=== PATIENT | female | born 1955 | race African-American/Black ===

== ENCOUNTER 2020-05-17 19:41 | Inpatient (IN) | payer OTHER, MEDICAID ==
[~2020-05-17] VITALS: Ht 165.1 cm; Wt 146.0 kg
[2020-05-18 00:17] LABS: Basophils # (auto) 0.1 10 ^3/uL (0-0.2); Eosinophils # (auto) 0.2 10 ^3/uL (0-0.8); Eosinophils % (auto) 2.5 % (0.0-7.0); Hematocrit 32.7 % (36.0-46.0); Hemoglobin 10.5 g/dL (12.2-16.2); Lymphocytes # (auto) 1.7 10 ^3/uL (0.4-5.4); Lymphocytes % (auto) 23.5 % (10.0-50.0); Mean Corpuscular Hemoglobin 29.2 pg (28.0-32.0); Mean Corpuscular Hgb Conc. 32.2 g/dL (32.0-36.0); Mean Corpuscular Volume 90.7 fL (80.0-100.0); Monocytes # (auto) 0.4 10 ^3/uL (0-1.3); Monocytes % (auto) 5.8 % (0.0-12.0); Neutrophils # (auto) 4.8 10 ^3/uL (1.6-8.6); Neutrophils % (auto) 67.2 % (37.0-80.0); Nucleated Red Blood Cells % 0.1 %; Platelet Count (auto) 221 10^3/uL (140-450); Red Cell Distribution Width 15.4 % (11.8-14.3); White Blood Cell 7.2 10^3/uL (4.4-10.8)
[2020-05-18 00:31] LABS: Chloride 103 mmol/L (98-107); Potassium 4.3 mmol/L (3.5-5.1); Sodium 138 mmol/L (136-145)
[2020-05-18 00:35] LABS: Alanine Aminotransferase 26 U/L (13-56); Albumin 3.3 g/dL (3.4-5.0); Anion Gap 4 (5-15); Aspartate Aminotransferase 21 U/L (15-37); BUN/Creatinine Ratio 25.4; Blood Urea Nitrogen 15 mg/dL (7-18); Calcium 8.5 mg/dL (8.5-10.1); Carbon Dioxide 31 mmol/L (21-32); GFR African American 132 mL/min; GFR Non-African American 109 mL/min; Glucose 85 mg/dL (74-106)
[2020-05-18 00:40] LABS: Alkaline Phosphatase 128 U/L (45-117); Bilirubin, Total 0.3 mg/dL (0.2-1.0)
[2020-05-18] MEDS ORDERED: ONDANSETRON HCL 4 MG/2 ML VIAL IV ONE (02:00)
[2020-05-18] MEDS ORDERED: MORPHINE SULFATE 4 MG/ML SYR/VIAL IV ONE (02:00)
[2020-05-18] MEDS: MORPHINE SULF 15mg ER tab PO SCH ×4 (03:00→22:17)
[2020-05-18] MEDS ORDERED: DEXTROSE (50%) 50ML SYRG IV PRN (03:00)
[2020-05-18] MEDS ORDERED: DOCUSATE SOD 100 MG CAP PO PRN (03:00)
[2020-05-18] MEDS ORDERED: ACETAMINOPHEN 325 MG TAB PO PRN (03:00)
[2020-05-18] MEDS ORDERED: ONDANSETRON HCL 4 MG/2 ML VIAL IV PRN (03:00)
[2020-05-18 04:30] VITALS: BP 161/89
--- NOTE | 2020-05-18 04:30 | NUR ---
PATIENT BROUGHT TO UNIT FROM ER PATIENT IS AOX4, ALL BELONGINGS W/ PATIENT. DISCUSSED POC W/ PATIENT AND PATIENT VERBALLY AGREED TO UNDERSTANDING. PATIENT CALL LIGHT WITHIN REACH, SOME SOB WHEN TURNING. PATIENT SATING AT 99% ON 2L NC. NO COMPLAINTS OF ACUTE PAIN. BED LOCKED IN LOWEST POSITION. SEIZURE PRECAUTIONS. WILL CONTINUE TO MONITOR.
--- NOTE | 2020-05-18 05:00 | NUR ---
RT PAGED TO REEVALUATE PATIENT FOR EXERTION ON MOVING TO HER SIDE. RT EVALUATED HER. NO FURTHER INTERVENTIONS. WILL CONTINUE TO MONITOR.
[2020-05-18] MEDS: ACCU-CHEK COMFORT CURVE STRIP VI SCH ×3 (05:13→11:19)
[2020-05-18] MEDS: InsuLIN REG 1unit/0.01ml Soln (100units/ml) SC SCH ×3 (05:15→11:19)
[2020-05-18] MEDS: ALBUTEROL SULF 2.5 MG/0.5ML(0.5%) NEB SOLN NEB PRN ×2 (06:17→21:14)
[2020-05-18] MEDS: IPRATROPIUM BROM 0.5 MG/2.5ML INH SOL NEB PRN ×2 (06:17→21:14)
[2020-05-18 06:32] VITALS: BP 161/89
[2020-05-18 07:39] LABS: Basophils # (auto) 0.1 10 ^3/uL (0-0.2); Basophils % (auto) 0.9 % (0.0-2.0); Eosinophils # (auto) 0.1 10 ^3/uL (0-0.8); Eosinophils % (auto) 2.5 % (0.0-7.0); Hematocrit 31.2 % (36.0-46.0); Hemoglobin 10.3 g/dL (12.2-16.2); Lymphocytes # (auto) 1.5 10 ^3/uL (0.4-5.4); Lymphocytes % (auto) 26.6 % (10.0-50.0); Mean Corpuscular Hemoglobin 29.9 pg (28.0-32.0); Mean Corpuscular Hgb Conc. 32.9 g/dL (32.0-36.0); Mean Corpuscular Volume 90.8 fL (80.0-100.0); Monocytes # (auto) 0.4 10 ^3/uL (0-1.3); Monocytes % (auto) 7.8 % (0.0-12.0); Neutrophils # (auto) 3.5 10 ^3/uL (1.6-8.6); Neutrophils % (auto) 62.2 % (37.0-80.0); Nucleated Red Blood Cells % 0.1 %; Platelet Count (auto) 216 10^3/uL (140-450); Red Blood Cells 3.44 10^6/uL (4.0-5.20); Red Cell Distribution Width 15.5 % (11.8-14.3); White Blood Cell 5.6 10^3/uL (4.4-10.8)
--- NOTE | 2020-05-18 07:45 | NUR ---
Opening Shift Note Assumed care of patient, awake and alert. No S/S of distress/SOB or pain. Instructed on POC and to call for assist PRN, will continue to monitor for changes Q1hr and PRN.
[2020-05-18 08:01] LABS: Chloride 105 mmol/L (98-107); Potassium 4.1 mmol/L (3.5-5.1); Sodium 140 mmol/L (136-145)
[2020-05-18 08:15] LABS: Anion Gap 3 (5-15); Blood Urea Nitrogen 14 mg/dL (7-18); Calcium 8.6 mg/dL (8.5-10.1); Carbon Dioxide 32 mmol/L (21-32); Cholesterol 162 mg/dL (< 200); GFR African American 140 mL/min; GFR Non-African American 115 mL/min; Glucose 77 mg/dL (74-106); HDL Cholesterol 53 mg/dL (40-59); LDL Cholesterol 107 mg/dL (< 100); Triglycerides 79 mg/dL (< 150)
[2020-05-18 08:46] VITALS: BP 109/53
[2020-05-18] MEDS ORDERED: FUROSEMIDE 40 MG/4 ML VIAL IV SCH (10:00)
--- NOTE | 2020-05-18 11:13 | NUR ---
Mendoza catheter insertion Patient assessed and determined to be in need of mendoza catheter. Order obtained from DELIO BENNETT. Patient educated on catheter and reason for insertion. All questions answered. Mendoza catheter guage Macedonian inserted with clean sterile technique. Patient tolerated well.
[2020-05-18 13:00] VITALS: BP 148/68
[2020-05-18] MEDS ORDERED: predniSONE 20 MG TAB PO ONE (13:30)
[2020-05-18] MEDS ORDERED: ENOXAPARIN SOD 40 MG/0.4 ML SYRINGE SC ONE (13:30)
[2020-05-18] MEDS ORDERED: POTASSIUM EFFERVESENT TAB 25 MEQ PO ONE (13:45)
--- NOTE | 2020-05-18 16:13 | NUR ---
PT BLOOD GLUCOSE 138
[2020-05-18 17:00] VITALS: BP 169/76
--- NOTE | 2020-05-18 19:20 | NUR ---
Opening Shift Note Assumed care of patient, awake and alert x4. No S/S of distress/SOB or acute pain. Call light within reach, HOB at 30 45 degrees, rails up and padded x2. Bed locked in lowest position. Instructed on POC and to call for assist PRN, will continue to monitor for changes Q1hr and PRN.
[2020-05-18] MEDS ORDERED: LORA-622 PO (20:53)
[2020-05-18] MEDS ORDERED: CARV25TA55 PO (21:07)
[2020-05-18] MEDS ORDERED: HYDR50TA15 PO (21:09)
[2020-05-18] MEDS ORDERED: PHE100C PO (21:11)
[2020-05-18] MEDS ORDERED: MONT10TA34 OR (21:13)
[2020-05-18] MEDS ORDERED: BUP75T GT (21:13)
[2020-05-18] MEDS ORDERED: GABA300C10 PO (21:20)
[2020-05-18] MEDS ORDERED: NIFE1TAB30 PO (21:22)
[2020-05-18] MEDS ORDERED: PREG100C PO (21:23)
[2020-05-18 22:00] VITALS: BP 153/80
--- NOTE | 2020-05-18 22:00 | NUR ---
SPOKE WITH HOSPITALIST PERTAINING TO HOME MEDICATIONS. ORDERS RECEIVED FOR BLOOD PRESSURE MEDICATIONS AND ANTI-SEIZURE MEDICATIONS.
[2020-05-18] MEDS: ENOXAPARIN SOD 40 MG/0.4 ML SYRINGE SC SCH (22:17)
[2020-05-18] MEDS: FUROSEMIDE 40 MG/4 ML VIAL IV SCH (22:17)
[2020-05-19 01:05] VITALS: BP 153/80
[2020-05-19 05:00] VITALS: BP 155/76
[2020-05-19] MEDS: MORPHINE SULF 15mg ER tab PO SCH ×3 (05:35→22:03)
[2020-05-19] MEDS: hydrALAZINE HCL 25 MG TAB PO SCH ×3 (05:36→22:02)
[2020-05-19] MEDS: IPRATROPIUM BROM 0.5 MG/2.5ML INH SOL NEB PRN ×2 (07:00→22:38)
[2020-05-19] MEDS: ALBUTEROL SULF 2.5 MG/0.5ML(0.5%) NEB SOLN NEB PRN ×2 (07:00→22:38)
[2020-05-19] MEDS ORDERED: INSLANTI SC ×2 (08:06)
[2020-05-19] MEDS ORDERED: ZOLP10TA PO (08:06)
[2020-05-19] MEDS ORDERED: INSLISPI SC (08:06)
[2020-05-19 08:36] VITALS: BP 143/74
[2020-05-19] MEDS: PHENYTOIN SODIUM 100 MG CAP PO SCH ×2 (09:01→22:01)
[2020-05-19] MEDS: FUROSEMIDE 40 MG/4 ML VIAL IV SCH ×2 (09:02→22:00)
[2020-05-19] MEDS: CARVEDILOL 12.5 MG TAB PO SCH ×2 (09:02→22:01)
[2020-05-19] MEDS: predniSONE 20 MG TAB PO SCH (09:02)
[2020-05-19] MEDS: ENOXAPARIN SOD 40 MG/0.4 ML SYRINGE SC SCH ×2 (09:02→22:05)
[2020-05-19] MEDS: POTASSIUM EFFERVESENT TAB 25 MEQ PO SCH (09:02)
--- NOTE | 2020-05-19 09:17 | NUR ---
Dr. Scherer paged regarding patient wants her home meds. Awaiting to call back.
[2020-05-19] MEDS ORDERED: GABAPENTIN 300 MG CAP PO SCH (10:00)
[2020-05-19] MEDS ORDERED: MORP15TA PO (12:59)
[2020-05-19] MEDS ORDERED: BUPR100T14 PO (12:59)
[2020-05-19] MEDS ORDERED: PERCOT PO (12:59)
[2020-05-19] MEDS ORDERED: PHE100C PO (12:59)
[2020-05-19] MEDS ORDERED: SPIR50TA5 PO (12:59)
[2020-05-19] MEDS ORDERED: CLON0.3D4 PO (12:59)
[2020-05-19] MEDS ORDERED: ESCI20TA PO (12:59)
[2020-05-19 13:00] VITALS: BP 118/53
[2020-05-19] MEDS ORDERED: LIDO5DIS21 TOP (13:03)
[2020-05-19] MEDS ORDERED: TIZA4CAP PO (14:32)
--- NOTE | 2020-05-19 14:56 | NUR ---
Family brought patient home meds, took to the pharmacy, there is Percocet 5/325 mg 57 tabs and Morphine Sulfate 15 mg 10 tabs counted with the patient. Patient signed and sealed all meds to Pharmacy.
[2020-05-19 17:00] VITALS: BP 122/53
[2020-05-19] MEDS ORDERED: ZOLPIDEM TARTRATE 5 MG TAB PO PRN (17:15)
--- NOTE | 2020-05-19 17:57 | NUR ---
Spoke to Dr. Rodriguez regarding patient needs home meds, received new orders, noted and carried it out.
[2020-05-19] MEDS ORDERED: LORazepam 0.5 MG TAB PO PRN (18:00)
[2020-05-19] MEDS ORDERED: DEXTROSE (50%) 50ML SYRG IV PRN (18:00)
--- NOTE | 2020-05-19 19:30 | NUR ---
Opening Shift Note Assumed care of patient, awake and alert. A&Ox4. Patient in bed. No S/S of distress/SOB or pain. Safety measures maintained by keeping the bed locked in lowest position, side rails up x2, personal items and call light within reach. Instructed on POC and to call for assist PRN, will continue to monitor for changes Q1hr and PRN.
[2020-05-19 22:00] VITALS: BP 166/84
[2020-05-19] MEDS ORDERED: PREGABALIN 25 MG CAP PO SCH (22:00)
[2020-05-19] MEDS ORDERED: InsuLIN REG 1unit/0.01ml Soln (100units/ml) SC SCH (22:00)
[2020-05-19] MEDS ORDERED: INSULIN LANTUS (GLARGINE) 1 /0.01ml (100units/ml) SC SCH (22:00)
[2020-05-19] MEDS: PREGABALIN 25 MG CAP PO SCH (22:02)
[2020-05-19] MEDS: PREGABALIN CAPSULE 75 MG CAP PO SCH (22:02)
[2020-05-19] MEDS: buPROPion HCL 75 MG TAB PO SCH (22:03)
[2020-05-19] MEDS: ACCU-CHEK COMFORT CURVE STRIP VI SCH (22:15)
[2020-05-20 05:00] VITALS: BP 128/71
[2020-05-20 05:10] LABS: Hematocrit 35.9 % (36.0-46.0); Mean Corpuscular Hgb Conc. 32.2 g/dL (32.0-36.0)
[2020-05-20 05:14] LABS: Hemoglobin 11.5 g/dL (12.2-16.2); Mean Corpuscular Hemoglobin 28.9 pg (28.0-32.0); Mean Corpuscular Volume 89.7 fL (80.0-100.0); Platelet Count (auto) 256 10^3/uL (140-450); Red Cell Distribution Width 14.6 % (11.8-14.3); White Blood Cell 8.4 10^3/uL (4.4-10.8)
[2020-05-20 05:18] LABS: Basophils % (manual) 0 (0.0-2.0); Blast Cells 0; Metamyelocytes % 0; Myelocytes % 0; Promyelocytes % 0; Reactive Lymphocytes 0
[2020-05-20 05:25] LABS: Calcium 8.8 mg/dL (8.5-10.1); Potassium 4.1 mmol/L (3.5-5.1)
[2020-05-20 05:27] LABS: BUN/Creatinine Ratio 26.9
[2020-05-20] MEDS: MORPHINE SULF 15mg ER tab PO SCH ×2 (05:36→14:00)
[2020-05-20 05:52] LABS: Band Neutrophils % (manual) 3; Eosinophils % (manual) 5 (0-7); Lymphocytes % (manual) 32 (10.0-50.0); Monocytes % (manual) 7 (0-12)
[2020-05-20] MEDS: PREGABALIN CAPSULE 75 MG CAP PO SCH ×2 (06:14→14:04)
[2020-05-20] MEDS: PREGABALIN 25 MG CAP PO SCH ×2 (06:14→14:04)
[2020-05-20] MEDS: hydrALAZINE HCL 25 MG TAB PO SCH ×2 (06:15→14:05)
[2020-05-20] MEDS: InsuLIN REG 1unit/0.01ml Soln (100units/ml) SC SCH ×3 (06:16→17:00)
[2020-05-20] MEDS: ACCU-CHEK COMFORT CURVE STRIP VI SCH ×3 (06:16→17:41)
--- NOTE | 2020-05-20 07:25 | NUR ---
Opening Shift Note Assumed care of patient, awake and alert. A&Ox4. No S/S of distress/SOB or pain. Updated on POC and instructed to call for assistance as needed, patient verbalized understanding. Bed locked in lowest position, side rails up x2, personal items and call light within reach. Fall precautions in place, bed alarm on. Will continue to monitor for changes Q1hr and PRN.
--- NOTE | 2020-05-20 07:46 | NUR ---
UA sent to lab.
[2020-05-20 07:53] LABS: Urine Bacteria FEW /hpf (None Seen); Urine Blood 1+ /uL (Negative); Urine WBC 6 /hpf (0 - 5)
[2020-05-20 09:00] VITALS: BP 140/70
[2020-05-20] MEDS: IPRATROPIUM BROM 0.5 MG/2.5ML INH SOL NEB PRN (09:08)
[2020-05-20] MEDS: ALBUTEROL SULF 2.5 MG/0.5ML(0.5%) NEB SOLN NEB PRN (09:08)
[2020-05-20] MEDS: POTASSIUM EFFERVESENT TAB 25 MEQ PO SCH (09:17)
[2020-05-20] MEDS: predniSONE 20 MG TAB PO SCH (09:17)
[2020-05-20] MEDS: ENOXAPARIN SOD 40 MG/0.4 ML SYRINGE SC SCH (09:17)
[2020-05-20] MEDS: buPROPion HCL 75 MG TAB PO SCH (09:17)
[2020-05-20] MEDS: FUROSEMIDE 40 MG/4 ML VIAL IV SCH (09:17)
[2020-05-20] MEDS: HYDROcodone-ACET 5/325MG TAB PO PRN ×2 (09:18→14:12)
[2020-05-20] MEDS: PHENYTOIN SODIUM 100 MG CAP PO SCH (09:18)
[2020-05-20] MEDS: CARVEDILOL 12.5 MG TAB PO SCH (09:18)
[2020-05-20] MEDS ORDERED: TIZANIDINE 4 MG PO SCH (10:30)
[2020-05-20] MEDS ORDERED: FURO40TA4 PO ×2 (12:10→12:11)
[2020-05-20 12:50] VITALS: BP 116/57
[2020-05-20 15:50] VITALS: BP 116/57
[2020-05-20 17:00] VITALS: BP 109/68
--- NOTE | 2020-05-20 18:23 | NUR ---
DISCHARGE HOME Discharge instructions given as ordered. Encourage to follow up with PMD as instructed. All questions and concerns addressed. Patient verbalized understanding. Medication reconciliation form completed and copy given to patient. Home medications held in Pharmacy returned to patient. IV removed with catheter intact, pressure dressing applied, mendoza catheter removed. Telemetry unit returned to ICU. Patient taken to vehicle via wheelchair with all personal belongings, accompanied by staff. No distress noted at time of departure.
== END 2020-05-20 18:23 | disposition home or self-care (01) | DRG 292 ==
LOC: EDBD 19:41 → ER 19:41 → EDUNIT# 19:41 → TELE 19:42 → TELE-WESTW 05-18 04:31
PROVIDERS: ADMIT Hospitalist; ATTEND Internal Medicine
DX: I11.0 Hypertensive heart disease with heart failure (principal); J96.11 Chronic respiratory failure with hypoxia; Z68.43 Body mass index [BMI] 50.0-59.9, adult; I50.33 Acute on chronic diastolic (congestive) heart failure; E66.01 Morbid (severe) obesity due to excess calories; Z85.3 Personal history of malignant neoplasm of breast; Z87.891 Personal history of nicotine dependence; I27.20 Pulmonary hypertension, unspecified; E11.40 Type 2 diabetes mellitus with diabetic neuropathy, unspecified; G89.29 Other chronic pain; J43.9 Emphysema, unspecified; Z88.0 Allergy status to penicillin; Z88.1 Allergy status to other antibiotic agents; Z91.19 Patient's noncompliance with other medical treatment and regimen
CPT/HCPCS: 36415; 71045; 80048; 80053; 80061; 81001; 82962; 83036; 83880; 84484; 85007; 85025; 85027; 85379; 93005; 93306; 94640; G0378; J1815; J2405

== ENCOUNTER 2020-06-01 22:35 | Inpatient (IN) | payer OTHER, BC, MEDICAID ==
[~2020-06-01] VITALS: Ht 165.1 cm; Wt 145.0 kg
[~2020-06-01 22:35] MED LIST: BUPR100T14 PO; CARV25TA55 PO; CLON0.3D4 PO; ESCI20TA PO; FURO40TA4 PO; GABA300C10 PO; HYDR50TA15 PO; INSLANTI SC; INSLISPI SC; LIDO5DIS21 TOP; LORA-622 PO; MONT10TA34 OR; MORP15TA PO; NIFE1TAB30 PO; PERCOT PO; PHE100C PO; PREG100C PO; SPIR50TA5 PO; TIZA4CAP PO; ZOLP10TA PO
[2020-06-02] MEDS ORDERED: IPRATROPIUM BROM 0.5 MG/2.5ML INH SOL HHN ONE (01:00)
[2020-06-02] MEDS ORDERED: ALBUTEROL SULF 2.5 MG/0.5ML(0.5%) NEB SOLN HHN ONE (01:00)
[2020-06-02] MEDS ORDERED: methylPREDNISolone SOD SUCC 125 MG/2 ML VL IV ONE (01:00)
[2020-06-02 02:08] LABS: Basophils # (auto) 0.1 10 ^3/uL (0-0.2); Basophils % (auto) 1.5 % (0.0-2.0); Eosinophils # (auto) 0.2 10 ^3/uL (0-0.8); Eosinophils % (auto) 3.3 % (0.0-7.0); Hematocrit 32.7 % (36.0-46.0); Hemoglobin 10.4 g/dL (12.2-16.2); Lymphocytes # (auto) 1.8 10 ^3/uL (0.4-5.4); Lymphocytes % (auto) 31.7 % (10.0-50.0); Mean Corpuscular Hemoglobin 29.1 pg (28.0-32.0); Mean Corpuscular Hgb Conc. 31.8 g/dL (32.0-36.0); Mean Corpuscular Volume 91.4 fL (80.0-100.0); Monocytes # (auto) 0.4 10 ^3/uL (0-1.3); Monocytes % (auto) 7.5 % (0.0-12.0); Neutrophils # (auto) 3.2 10 ^3/uL (1.6-8.6); Nucleated Red Blood Cells % 0.1 %; Platelet Count (auto) 209 10^3/uL (140-450); Red Blood Cells 3.58 10^6/uL (4.0-5.20); Red Cell Distribution Width 15.2 % (11.8-14.3); White Blood Cell 5.7 10^3/uL (4.4-10.8)
[2020-06-02 02:26] LABS: Albumin 3.1 g/dL (3.4-5.0); Anion Gap 2 (5-15); BUN/Creatinine Ratio 21.4; Blood Urea Nitrogen 12 mg/dL (7-18); Calcium 8.5 mg/dL (8.5-10.1); Carbon Dioxide 34 mmol/L (21-32); Chloride 104 mmol/L (98-107); GFR African American 140 mL/min; GFR Non-African American 115 mL/min; Glucose 75 mg/dL (74-106); Magnesium 2.2 mg/dL (1.6-2.6); Potassium 3.9 mmol/L (3.5-5.1); Sodium 140 mmol/L (136-145)
[2020-06-02 02:31] LABS: Alanine Aminotransferase 25 U/L (13-56); Alkaline Phosphatase 134 U/L (45-117); Aspartate Aminotransferase 18 U/L (15-37); Bilirubin, Total 0.3 mg/dL (0.2-1.0); Total Protein 7.6 g/dL (6.4-8.2)
[2020-06-02] MEDS ORDERED: ONDANSETRON HCL 4 MG/2 ML VIAL IV ONE (05:30)
[2020-06-02] MEDS ORDERED: KETOROLAC TROMETH 30 MG/ML 1ML VIAL IV ONE (05:30)
[2020-06-02] MEDS ORDERED: MORPHINE SULFATE 4 MG/ML SYR/VIAL IV ONE (05:30)
[2020-06-02] MEDS ORDERED: ACETAMINOPHEN 325 MG TAB PO PRN (06:15)
[2020-06-02] MEDS ORDERED: ALBUTEROL SULF 2.5 MG/0.5ML(0.5%) NEB SOLN NEB PRN (06:15)
[2020-06-02] MEDS ORDERED: MORPHINE SULF INJ 2 MG/ML SYRINGE 1ML IV PRN (06:15)
[2020-06-02] MEDS ORDERED: ONDANSETRON HCL 4 MG/2 ML VIAL IV PRN (06:15)
[2020-06-02] MEDS ORDERED: IPRATROPIUM BROM 0.5 MG/2.5ML INH SOL NEB PRN (06:15)
[2020-06-02] MEDS ORDERED: DEXTROSE (50%) 50ML SYRG IV PRN (06:15)
[2020-06-02] MEDS ORDERED: cloNIDine 0.3 mg/24hr 7DAY PATCH TD SCH (06:15)
[2020-06-02] MEDS ORDERED: DOCUSATE SOD 100 MG CAP PO PRN (06:15)
[2020-06-02] MEDS: hydrALAZINE HCL 25 MG TAB PO SCH ×3 (06:51→21:37)
[2020-06-02] MEDS: MORPHINE SULF 15mg ER tab PO SCH ×3 (06:52→21:27)
[2020-06-02] MEDS: buPROPion HCL 100 MG TAB PO SCH (06:52)
[2020-06-02 09:14] VITALS: BP 131/61
[2020-06-02] MEDS: ACCU-CHEK COMFORT CURVE STRIP VI SCH ×4 (09:25→20:20)
[2020-06-02] MEDS: InsuLIN REG 1unit/0.01ml Soln (100units/ml) SC SCH ×4 (09:25→20:20)
[2020-06-02] MEDS ORDERED: methylPREDNISolone SOD SUCC 125 MG/2 ML VL IV SCH (10:00)
[2020-06-02] MEDS ORDERED: CARVEDILOL 12.5 MG TAB PO SCH (10:00)
[2020-06-02] MEDS ORDERED: GABAPENTIN 300 MG CAP PO SCH (10:00)
[2020-06-02 10:05] LABS: Basophils # (auto) 0 10 ^3/uL (0-0.2); Basophils % (auto) 0.7 % (0.0-2.0); Eosinophils # (auto) 0 10 ^3/uL (0-0.8); Eosinophils % (auto) 0.1 % (0.0-7.0); Hematocrit 33.4 % (36.0-46.0); Hemoglobin 10.7 g/dL (12.2-16.2); Lymphocytes # (auto) 0.8 10 ^3/uL (0.4-5.4); Lymphocytes % (auto) 12.6 % (10.0-50.0); Mean Corpuscular Hemoglobin 29.3 pg (28.0-32.0); Mean Corpuscular Volume 91.6 fL (80.0-100.0); Monocytes # (auto) 0.1 10 ^3/uL (0-1.3); Neutrophils # (auto) 5.1 10 ^3/uL (1.6-8.6); Neutrophils % (auto) 84.6 % (37.0-80.0); Platelet Count (auto) 210 10^3/uL (140-450); Red Blood Cells 3.65 10^6/uL (4.0-5.20); Red Cell Distribution Width 15.1 % (11.8-14.3)
[2020-06-02 10:21] LABS: Calcium 8.6 mg/dL (8.5-10.1); Potassium 4.4 mmol/L (3.5-5.1)
[2020-06-02 10:24] LABS: BUN/Creatinine Ratio 15.4
[2020-06-02] MEDS: SPIRONOLACTONE 25 MG TAB PO SCH (11:04)
[2020-06-02] MEDS: LORATADINE 10 MG TAB PO SCH (11:05)
[2020-06-02] MEDS: PHENYTOIN SODIUM 100 MG CAP PO SCH ×2 (11:06→21:37)
[2020-06-02] MEDS: MONTELUKAST SODIUM 10 MG TAB PO SCH (11:07)
[2020-06-02] MEDS: CLOPIDOGREL BISULFATE 75 MG TAB PO SCH (11:07)
[2020-06-02] MEDS: NIFEdipine ER 30 MG TAB PO SCH (11:11)
[2020-06-02] MEDS: CARVEDILOL 12.5 MG TAB PO SCH ×2 (11:12→21:37)
[2020-06-02] MEDS: cefTRIAXone 1GM/50ML D5W 50 ML IV SCH (11:12)
[2020-06-02] MEDS: FUROSEMIDE 40 MG/4 ML VIAL IV SCH ×2 (11:12→21:36)
[2020-06-02] MEDS: LIDOCAINE 5% TOPICAL PATCH TOP SCH (11:18)
--- NOTE | 2020-06-02 11:55 | NUR ---
MS admit from ER SAI COLBERT,SANGEETA admitted to tele/MS after SBAR received. Patient oriented to LEO SELFRN primary RN, unit,295 room,B bed, and unit policies regarding patient care and visiting hours. Patient placed on 3LNC and weighed by bedscale and encouraged to call if they need something. All questions and concerns addressed, patient verbalized understanding. Note:
[2020-06-02 13:00] VITALS: BP 133/77
[2020-06-02] MEDS: PREGABALIN 25 MG CAP PO SCH ×2 (14:42→21:36)
--- NOTE | 2020-06-02 15:30 | NUR ---
Mendoza catheter insertion Patient assessed and determined to be in need of mendoza catheter. Order obtained from MD. Patient educated on catheter and reason for insertion. All questions answered. Mendoza catheter 16 guage Chinese inserted with clean sterile technique. Patient tolerated well.
--- NOTE | 2020-06-02 16:17 | NUR ---
Patient request her medication Tizanidine Hydrochloride early.
--- NOTE | 2020-06-02 16:30 | NUR ---
PT DECLINED P.T. TODAY.
[2020-06-02 16:45] VITALS: BP 135/79
[2020-06-02] MEDS: ATORVASTATIN 20 MG TAB PO SCH (18:20)
[2020-06-02] MEDS: ALBUTEROL SULF 2.5 MG/0.5ML(0.5%) NEB SOLN NEB SCH (18:59)
[2020-06-02] MEDS: IPRATROPIUM BROM 0.5 MG/2.5ML INH SOL NEB SCH (18:59)
--- NOTE | 2020-06-02 19:08 | NUR ---
Respiratory note: AT BEDSIDE FOR MED NEB TX. PT TOLERATING WELL VIA MASK. BS ARE DIMINISHED T/O WITH FINE WHEEZES HEARD IN RIGHT UPPER LOBE. POX 97-98% ON 5LPM NC. PT STATE SHE WEARS 3LPM NC AT HOME WILL ATTEMPT TO TITRATE O2 POST TX.
--- NOTE | 2020-06-02 19:12 | NUR ---
FIO2 TITRATED TO 4LPM VIA NC. POX 97-98%. PT TOLERATING WELL. RT NAME AND PAGER ASSIGNMENT WRITTEN ON PTS ROOM BOARD. PT AWARE IF SHE HAS ANY CONCERN WITH HER BREATHING I CAN BE PAGED AT ANY TIME. WILL CONTINUE TO MONITOR NEEDED. WILL NOTIFY NOC RN OF O2 CHANGE.
[2020-06-02 21:35] VITALS: BP 147/70
[2020-06-02] MEDS ORDERED: ZOLPIDEM TARTRATE 5 MG TAB PO PRN (22:00)
[2020-06-02 23:04] VITALS: BP 121/65
[2020-06-02 23:42] LABS: Urine Bacteria NONE SEEN /hpf (None Seen); Urine Blood Negative /uL (Negative); Urine WBC 1 /hpf (0 - 5)
[2020-06-03] MEDS: ACCU-CHEK COMFORT CURVE STRIP VI SCH ×6 (00:14→22:00)
[2020-06-03] MEDS: NITROGLYCERIN 0.4 MG SL TAB SL PRN (02:29)
--- NOTE | 2020-06-03 03:14 | NUR ---
Called/paged 0230 Pt complaining of chest pain. BP 132/64 HR68 98%4L NC 22RR. 0231 Stanley FR[place] called re: pt stating sharp chest pain . Waiting for call back. Will continue to monitor. 0300 Still waiting for call back. Pt states pain has improved. BP 124/54 HR61 98%4L NC 22RR.
[2020-06-03] MEDS: InsuLIN REG 1unit/0.01ml Soln (100units/ml) SC SCH ×6 (04:00→22:00)
[2020-06-03 04:46] VITALS: BP 136/82
[2020-06-03] MEDS: IPRATROPIUM BROM 0.5 MG/2.5ML INH SOL NEB SCH ×3 (06:05→18:55)
[2020-06-03] MEDS: ALBUTEROL SULF 2.5 MG/0.5ML(0.5%) NEB SOLN NEB SCH ×3 (06:05→18:55)
[2020-06-03] MEDS: buPROPion HCL 100 MG TAB PO SCH (06:36)
[2020-06-03] MEDS: MORPHINE SULF 15mg ER tab PO SCH ×3 (06:36→23:03)
[2020-06-03] MEDS: hydrALAZINE HCL 25 MG TAB PO SCH ×3 (06:36→22:59)
[2020-06-03] MEDS: PREGABALIN 25 MG CAP PO SCH ×3 (06:36→22:00)
[2020-06-03 08:00] VITALS: BP 118/73
[2020-06-03 09:00] VITALS: BP 118/73
[2020-06-03] MEDS: CARVEDILOL 12.5 MG TAB PO SCH ×2 (10:00→22:00)
[2020-06-03] MEDS: cefTRIAXone 1GM/50ML D5W 50 ML IV SCH (10:09)
[2020-06-03] MEDS: FUROSEMIDE 40 MG/4 ML VIAL IV SCH ×2 (10:09→22:00)
[2020-06-03] MEDS: SPIRONOLACTONE 25 MG TAB PO SCH (10:10)
[2020-06-03] MEDS: LORATADINE 10 MG TAB PO SCH (10:11)
[2020-06-03] MEDS: PHENYTOIN SODIUM 100 MG CAP PO SCH ×2 (10:11→23:01)
[2020-06-03] MEDS: NIFEdipine ER 30 MG TAB PO SCH (10:12)
[2020-06-03] MEDS: MONTELUKAST SODIUM 10 MG TAB PO SCH (10:12)
[2020-06-03] MEDS: CLOPIDOGREL BISULFATE 75 MG TAB PO SCH (10:12)
[2020-06-03] MEDS: LIDOCAINE 5% TOPICAL PATCH TOP SCH (10:13)
--- NOTE | 2020-06-03 11:15 | NUR ---
Dr Bales on unit
[2020-06-03 11:17] LABS: Urine Bacteria NONE SEEN /hpf (None Seen); Urine Blood TRACE /uL (Negative); Urine Specific Gravity 1.007 (1.001-1.035); Urine WBC 1 /hpf (0 - 5)
[2020-06-03] MEDS ORDERED: PANTOPRAZOLE 40 MG TAB PO ONE (11:30)
[2020-06-03] MEDS ORDERED: ENOXAPARIN SOD 40 MG/0.4 ML SYRINGE SC ONE (11:30)
[2020-06-03] MEDS ORDERED: FUROSEMIDE 40 MG/4 ML VIAL IV ONE (11:30)
[2020-06-03] MEDS ORDERED: POTASSIUM CHL 20 Meq TABLET PO ONE (11:30)
[2020-06-03] MEDS ORDERED: DEXTROSE (50%) 50ML SYRG IV PRN (11:30)
[2020-06-03 12:52] VITALS: BP 133/75
--- NOTE | 2020-06-03 13:15 | NUR ---
Tele Transfer Leesa Martinez transferred patient to tele. Tele # [id number]
[2020-06-03 15:07] LABS: Glucose 105 mg/dL (74-106)
[2020-06-03 15:25] LABS: Anion Gap 2 (5-15); Blood Urea Nitrogen 18 mg/dL (7-18); Carbon Dioxide 37 mmol/L (21-32); Chloride 99 mmol/L (98-107); GFR African American 105 mL/min; GFR Non-African American 86 mL/min; Potassium 3.8 mmol/L (3.5-5.1); Sodium 138 mmol/L (136-145)
[2020-06-03 17:00] VITALS: BP 137/64
[2020-06-03] MEDS: ATORVASTATIN 20 MG TAB PO SCH (17:58)
[2020-06-03 22:00] VITALS: BP 132/72
[2020-06-03] MEDS: POTASSIUM CHL 20 Meq TABLET PO SCH (23:01)
[2020-06-03] MEDS: TEMAZEPAM 15 MG CAP PO PRN (23:05)
[2020-06-04 05:00] VITALS: BP 133/87
[2020-06-04] MEDS: hydrALAZINE HCL 25 MG TAB PO SCH ×3 (05:54→22:00)
[2020-06-04] MEDS: PREGABALIN 25 MG CAP PO SCH ×3 (05:55→22:58)
[2020-06-04] MEDS: buPROPion HCL 100 MG TAB PO SCH (05:56)
[2020-06-04] MEDS: MORPHINE SULF 15mg ER tab PO SCH ×3 (05:57→22:57)
[2020-06-04] MEDS: NITROGLYCERIN 0.4 MG SL TAB SL PRN ×2 (06:12→07:50)
[2020-06-04] MEDS: IPRATROPIUM BROM 0.5 MG/2.5ML INH SOL NEB SCH ×3 (06:19→19:57)
[2020-06-04] MEDS: ALBUTEROL SULF 2.5 MG/0.5ML(0.5%) NEB SOLN NEB SCH ×3 (06:19→19:57)
[2020-06-04] MEDS: ACCU-CHEK COMFORT CURVE STRIP VI SCH ×4 (06:22→22:00)
[2020-06-04] MEDS: InsuLIN REG 1unit/0.01ml Soln (100units/ml) SC SCH ×4 (06:23→22:00)
--- NOTE | 2020-06-04 06:42 | NUR ---
Johnson Angel, RN, [employer], hospitalist chief radiation therapist paged re. Pt c/o CP at approx 0600. Pain throbbing and stabbing from ant to back over R upper mid chest. Pt not wearing O2 n/c; wrapped around lower R leg and foot. N/C replaced. VS are WNL. EKG done; no remarkable changes. Nitro 0.4mg i sublingual given @ 0612 with immed decrease in CP from 9.5 to 7 and continuing to decrease. RT into room for resp tx immed. following. Pt able to talk and laugh during admin of a.m. meds.
--- NOTE | 2020-06-04 06:47 | NUR ---
Yi Angel, hospitalist vocational school teacher returned page. This RN informed him of pt's CP, EKG unchanged and Nitro given successfully. No new orders received.
--- NOTE | 2020-06-04 06:50 | NUR ---
Pt assisted to restroom per pt request with CANDE Rojas, to have BM. Pt cont SOB; needs large BSC. Instructed to pull red cord for nurse if feels lightheaded, SOB increases, or becomes dizzy. Pt VU.
[2020-06-04 07:01] LABS: BUN/Creatinine Ratio 25.7; Calcium 8.7 mg/dL (8.5-10.1)
[2020-06-04] MEDS ORDERED: DOBUTamine 1000MCG/ML 100 ML IV ONE (08:05)
--- NOTE | 2020-06-04 08:20 | NUR ---
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
--- NOTE | 2020-06-04 08:45 | NUR ---
HOLD P.T. BECAUSE OF CHEST PAIN.
[2020-06-04 09:00] VITALS: BP 137/71
[2020-06-04] MEDS ORDERED: ATROPINE SULF 1 MG/10ml SYR IV ONE (09:45)
[2020-06-04] MEDS: cefTRIAXone 1GM/50ML D5W 50 ML IV SCH (10:56)
[2020-06-04] MEDS: CLOPIDOGREL BISULFATE 75 MG TAB PO SCH (10:58)
[2020-06-04] MEDS: LIDOCAINE 5% TOPICAL PATCH TOP SCH (10:58)
[2020-06-04] MEDS: ENOXAPARIN SOD 40 MG/0.4 ML SYRINGE SC SCH (10:58)
[2020-06-04] MEDS: MONTELUKAST SODIUM 10 MG TAB PO SCH (10:58)
[2020-06-04] MEDS: POTASSIUM CHL 20 Meq TABLET PO SCH ×2 (10:58→22:58)
[2020-06-04] MEDS: PHENYTOIN SODIUM 100 MG CAP PO SCH ×2 (10:59→22:58)
[2020-06-04] MEDS: PANTOPRAZOLE 40 MG TAB PO SCH (10:59)
[2020-06-04] MEDS: CITALOPRAM HYDROBR 20 MG TAB PO SCH (10:59)
[2020-06-04] MEDS: CARVEDILOL 12.5 MG TAB PO SCH ×2 (11:00→22:00)
[2020-06-04] MEDS: SPIRONOLACTONE 25 MG TAB PO SCH (11:00)
[2020-06-04] MEDS: NIFEdipine ER 30 MG TAB PO SCH (11:00)
[2020-06-04] MEDS: LORATADINE 10 MG TAB PO SCH (11:00)
[2020-06-04] MEDS: FUROSEMIDE 40 MG/4 ML VIAL IV SCH ×2 (11:01→22:00)
[2020-06-04] MEDS ORDERED: KETOROLAC TROMETH 30 MG/ML 1ML VIAL IV ONE (11:15)
[2020-06-04 13:00] VITALS: BP 130/74
[2020-06-04 16:55] VITALS: BP 127/41
[2020-06-04] MEDS: ATORVASTATIN 20 MG TAB PO SCH (17:39)
--- NOTE | 2020-06-04 19:30 | NUR ---
Opening Shift Note Assumed care of patient, awake and alert. Pt SOB with conversation. C/O pain in R upper chest , "down R arm and down to lower back." This nurse explained to pt that sustained release pain med not due and asked if pt had ever tried heat. Pt stated she had not. RN provided two hot packs in pillowcase to prevent heat injury and Tylenol as ordered prn for pain. HOB raised to Ozuna's position per pt request and directing. Bed in low position. Call light at pt's side. RN instructed pt on POC and to call for assist PRN. RN will continue to monitor for changes Q1hr and PRN.
--- NOTE | 2020-06-04 19:57 | NUR ---
RT NOTE PT WAS SEEN BY RT FOR HHN TX. PT TOLERATES WELL VIA MASK. JONO BUTLER AT BEDSIDE. CONT ORDERED. Addendum: 06/04/20 at 2330 by Carla See RT Amended: Links added.
[2020-06-04 22:00] VITALS: BP 142/68
--- NOTE | 2020-06-04 23:30 | NUR ---
Report given to JONO Bermeo. Pt awake, states heat and acetaminophen did not help with pain. Pt speaking of TENS unit she has had "since Tuesday...ran out of charge." Bed cont low with nurse call light to pt's side. Pt changing position from side to side better than last night. HOB in Ozuna's position.
--- NOTE | 2020-06-04 23:31 | NUR ---
assumed care of this patient
[2020-06-05] VITALS (8 sets, daily range): BP systolic 103–154; BP diastolic 53–72
[2020-06-05] MEDS: TEMAZEPAM 15 MG CAP PO PRN ×2 (00:05→21:57)
[2020-06-05] MEDS: MORPHINE SULF 15mg ER tab PO SCH ×3 (05:32→21:55)
[2020-06-05] MEDS: PREGABALIN 25 MG CAP PO SCH ×3 (06:21→22:14)
[2020-06-05] MEDS: hydrALAZINE HCL 25 MG TAB PO SCH ×3 (06:22→21:52)
[2020-06-05] MEDS: buPROPion HCL 100 MG TAB PO SCH (06:22)
[2020-06-05] MEDS: InsuLIN REG 1unit/0.01ml Soln (100units/ml) SC SCH ×4 (06:23→22:00)
[2020-06-05] MEDS: ACCU-CHEK COMFORT CURVE STRIP VI SCH ×4 (06:23→22:13)
--- NOTE | 2020-06-05 07:30 | NUR ---
Opening Shift Note Assumed care of patient, awake and alert. No S/S of distress/SOB or pain. Instructed on POC and to call for assist PRN, will continue to monitor for changes Q1hr and PRN. Bed is locked and in lowest position. Call light within reach.
[2020-06-05] MEDS: IPRATROPIUM BROM 0.5 MG/2.5ML INH SOL NEB SCH ×3 (07:55→19:24)
[2020-06-05] MEDS: ALBUTEROL SULF 2.5 MG/0.5ML(0.5%) NEB SOLN NEB SCH ×3 (07:56→19:24)
[2020-06-05 09:46] LABS: BUN/Creatinine Ratio 23.1; Calcium 8.7 mg/dL (8.5-10.1); Potassium 4.1 mmol/L (3.5-5.1)
[2020-06-05] MEDS: FUROSEMIDE 40 MG/4 ML VIAL IV SCH ×2 (11:48→21:56)
[2020-06-05] MEDS: cefTRIAXone 1GM/50ML D5W 50 ML IV SCH (11:49)
[2020-06-05] MEDS: ENOXAPARIN SOD 40 MG/0.4 ML SYRINGE SC SCH (11:49)
[2020-06-05] MEDS: PHENYTOIN SODIUM 100 MG CAP PO SCH ×2 (11:50→21:52)
[2020-06-05] MEDS: POTASSIUM CHL 20 Meq TABLET PO SCH ×2 (11:50→21:53)
[2020-06-05] MEDS: CLOPIDOGREL BISULFATE 75 MG TAB PO SCH (11:50)
[2020-06-05] MEDS: LORATADINE 10 MG TAB PO SCH (11:50)
[2020-06-05] MEDS: PANTOPRAZOLE 40 MG TAB PO SCH (11:50)
[2020-06-05] MEDS: MONTELUKAST SODIUM 10 MG TAB PO SCH (11:51)
[2020-06-05] MEDS: NIFEdipine ER 30 MG TAB PO SCH (11:51)
[2020-06-05] MEDS: SPIRONOLACTONE 25 MG TAB PO SCH (11:52)
[2020-06-05] MEDS: CITALOPRAM HYDROBR 20 MG TAB PO SCH (11:52)
[2020-06-05] MEDS: CARVEDILOL 12.5 MG TAB PO SCH ×2 (11:53→21:55)
--- NOTE | 2020-06-05 12:00 | NUR ---
MEDICATION CLONIDINE PATCH 0.3MG HELD DUE TO BP 103/53. WILL CONTINUE TO MONITOR BP.
[2020-06-05] MEDS ORDERED: cloNIDine 0.3 mg/24hr 7DAY PATCH TD SCH (13:45)
[2020-06-05] MEDS: LIDOCAINE 5% TOPICAL PATCH TOP SCH (14:12)
[2020-06-05] MEDS: traMADol HCL 50 MG TAB PO PRN ×2 (14:15→19:49)
[2020-06-05] MEDS ORDERED: IOHEXOL 350 MG/ML 100ML IJ ONE (14:23)
--- NOTE | 2020-06-05 14:43 | NUR ---
Est energy needs [id number] kcal (25-30 kcal/kg IBW 56.8kg) Est protein needs 57-74g (1-1.3g/kg IBW 56.8kg) Will reassess prn. Addendum: 06/05/20 at [address] Amended: Links added.
[2020-06-05] MEDS: ATORVASTATIN 20 MG TAB PO SCH (19:07)
--- NOTE | 2020-06-05 19:30 | NUR ---
Opening Shift Note Assumed care of patient, awake and alert x 4. No S/S of distress/SOB. Bed is in lowest position and locked. Call light within reach. Instructed on POC and to call for assist PRN, will continue to monitor for changes Q1hr and PRN.
--- NOTE | 2020-06-05 19:55 | NUR ---
Pain Patient has pain /10. medicated per md orders, will reassess and continue to monitor. call light within reach.
--- NOTE | 2020-06-06 03:10 | NUR ---
PT COMPLAINED OF LEFT LEG PAIN, PRN GIVEN ORDERED WILL REASSESS AND CONTINUE TO MONITOR.
[2020-06-06] MEDS: traMADol HCL 50 MG TAB PO PRN ×3 (03:13→17:09)
[2020-06-06 05:00] VITALS: BP 133/70
[2020-06-06] MEDS: PREGABALIN 25 MG CAP PO SCH ×3 (06:18→21:41)
[2020-06-06] MEDS: MORPHINE SULF 15mg ER tab PO SCH ×3 (06:18→21:43)
[2020-06-06] MEDS: hydrALAZINE HCL 25 MG TAB PO SCH ×3 (06:19→21:41)
[2020-06-06] MEDS: buPROPion HCL 100 MG TAB PO SCH (06:19)
[2020-06-06] MEDS: ACCU-CHEK COMFORT CURVE STRIP VI SCH ×4 (06:27→21:43)
[2020-06-06] MEDS: InsuLIN REG 1unit/0.01ml Soln (100units/ml) SC SCH ×4 (06:43→21:57)
--- NOTE | 2020-06-06 07:08 | NUR ---
Closing note Endorsed care to day shift RN. no sob or distress noted.
[2020-06-06] MEDS: IPRATROPIUM BROM 0.5 MG/2.5ML INH SOL NEB SCH ×3 (07:13→18:43)
[2020-06-06] MEDS: ALBUTEROL SULF 2.5 MG/0.5ML(0.5%) NEB SOLN NEB SCH ×3 (07:13→16:33)
[2020-06-06 08:00] VITALS: BP 136/70
[2020-06-06 08:32] VITALS: BP 134/63
[2020-06-06] MEDS: ENOXAPARIN SOD 40 MG/0.4 ML SYRINGE SC SCH (09:27)
[2020-06-06] MEDS: cefTRIAXone 1GM/50ML D5W 50 ML IV SCH (09:27)
[2020-06-06] MEDS: POTASSIUM CHL 20 Meq TABLET PO SCH ×2 (09:28→21:42)
[2020-06-06] MEDS: LIDOCAINE 5% TOPICAL PATCH TOP SCH (09:28)
[2020-06-06] MEDS: FUROSEMIDE 40 MG/4 ML VIAL IV SCH ×2 (09:28→21:40)
[2020-06-06] MEDS: PHENYTOIN SODIUM 100 MG CAP PO SCH ×2 (09:29→21:43)
[2020-06-06] MEDS: CITALOPRAM HYDROBR 20 MG TAB PO SCH (09:29)
[2020-06-06] MEDS: PANTOPRAZOLE 40 MG TAB PO SCH (09:29)
[2020-06-06] MEDS: SPIRONOLACTONE 25 MG TAB PO SCH (09:30)
[2020-06-06] MEDS: NIFEdipine ER 30 MG TAB PO SCH (09:30)
[2020-06-06] MEDS: CARVEDILOL 12.5 MG TAB PO SCH ×2 (09:31→21:43)
[2020-06-06] MEDS: MONTELUKAST SODIUM 10 MG TAB PO SCH (09:31)
[2020-06-06] MEDS: LORATADINE 10 MG TAB PO SCH (09:31)
[2020-06-06] MEDS: CLOPIDOGREL BISULFATE 75 MG TAB PO SCH (09:32)
--- NOTE | 2020-06-06 10:00 | NUR ---
IV removal IV DC'd on right wrist with clean sterile technique, catheter fully intact. Pressure dressing applied to site. Patient tolerated well.
--- NOTE | 2020-06-06 11:00 | NUR ---
PATIENT REPORTS THAT SHE WAS ALREADY UP TODAY AND WILL ATTEMPT TO AMBULATE TOMORROW.
--- NOTE | 2020-06-06 12:16 | NUR ---
IV removal IV DC'd on right forearm 20G with clean sterile technique, catheter fully intact. Pressure dressing applied to site. Patient tolerated well.
[2020-06-06 12:41] VITALS: BP 136/70
--- NOTE | 2020-06-06 12:51 | NUR ---
PT. REFUSED MN. TX. AT THIS TIME. PT. IS SITTING UP IN A CHAIR WATCHING TV AND HAVING LUNCH. PT. STATES "I WILL CALL YOU IF I NEED A TX. LATER". NO TX. GIVEN, HR=64,RR=20, SP02=95% ON 3LPM NC. NO RESP. DISTRESS NOTED.
[2020-06-06 16:26] VITALS: BP 130/76
[2020-06-06] MEDS: ATORVASTATIN 20 MG TAB PO SCH (18:48)
--- NOTE | 2020-06-06 19:20 | NUR ---
Opening note Assumed care of patient. Patient is receiving breathing treatment. Bed locked in lowest position, side rails up x2. call light within reach, will continue to monitor. q1hr and prn.
[2020-06-06] MEDS: TEMAZEPAM 15 MG CAP PO PRN (21:42)
[2020-06-06 22:15] VITALS: BP 129/73
[2020-06-07] MEDS: traMADol HCL 50 MG TAB PO PRN ×2 (01:48→10:03)
--- NOTE | 2020-06-07 01:50 | NUR ---
Pain Patient states she is having on her back and legs. Medicated per md orders. Offered patient to reposition. Positioned patient to her left side and placed a pillow under her back on the right side. Patient states she is now very comfortable and will try to get some sleep. Call light within reach, will continue to monitor.
[2020-06-07 05:11] VITALS: BP 138/85
[2020-06-07] MEDS: PREGABALIN 25 MG CAP PO SCH ×2 (06:14→14:04)
[2020-06-07] MEDS: hydrALAZINE HCL 25 MG TAB PO SCH ×2 (06:14→14:05)
[2020-06-07] MEDS: buPROPion HCL 100 MG TAB PO SCH (06:15)
[2020-06-07] MEDS: MORPHINE SULF 15mg ER tab PO SCH ×2 (06:15→14:04)
[2020-06-07] MEDS: ALBUTEROL SULF 2.5 MG/0.5ML(0.5%) NEB SOLN NEB SCH ×2 (06:17→11:40)
[2020-06-07] MEDS: IPRATROPIUM BROM 0.5 MG/2.5ML INH SOL NEB SCH ×2 (06:17→11:40)
[2020-06-07] MEDS: InsuLIN REG 1unit/0.01ml Soln (100units/ml) SC SCH ×2 (06:44→12:06)
[2020-06-07] MEDS: ACCU-CHEK COMFORT CURVE STRIP VI SCH ×2 (06:45→11:30)
--- NOTE | 2020-06-07 07:11 | NUR ---
closing note endorsed care to day shift RN no sob or distress note
[2020-06-07 07:47] LABS: Basophils # (auto) 0 10 ^3/uL (0-0.2); Basophils % (auto) 0.8 % (0.0-2.0); Eosinophils # (auto) 0.2 10 ^3/uL (0-0.8); Eosinophils % (auto) 3.6 % (0.0-7.0); Hematocrit 34.4 % (36.0-46.0); Hemoglobin 11.1 g/dL (12.2-16.2); Lymphocytes # (auto) 1.7 10 ^3/uL (0.4-5.4); Lymphocytes % (auto) 27.6 % (10.0-50.0); Mean Corpuscular Hemoglobin 29.1 pg (28.0-32.0); Mean Corpuscular Hgb Conc. 32.3 g/dL (32.0-36.0); Mean Corpuscular Volume 90.2 fL (80.0-100.0); Monocytes # (auto) 0.5 10 ^3/uL (0-1.3); Monocytes % (auto) 8.3 % (0.0-12.0); Neutrophils # (auto) 3.6 10 ^3/uL (1.6-8.6); Neutrophils % (auto) 59.7 % (37.0-80.0); Nucleated Red Blood Cells % 0.1 %; Platelet Count (auto) 215 10^3/uL (140-450); Red Blood Cells 3.82 10^6/uL (4.0-5.20); Red Cell Distribution Width 14.5 % (11.8-14.3)
[2020-06-07 08:06] LABS: Potassium 4.1 mmol/L (3.5-5.1)
[2020-06-07 08:13] LABS: Albumin 3.1 g/dL (3.4-5.0); BUN/Creatinine Ratio 22.7; Bilirubin, Total 0.3 mg/dL (0.2-1.0); Calcium 8.9 mg/dL (8.5-10.1); Magnesium 2.3 mg/dL (1.6-2.6); Total Protein 7.7 g/dL (6.4-8.2)
[2020-06-07 09:00] VITALS: BP 112/71
[2020-06-07] MEDS: FUROSEMIDE 40 MG/4 ML VIAL IV SCH (10:00)
[2020-06-07] MEDS: ENOXAPARIN SOD 40 MG/0.4 ML SYRINGE SC SCH (10:01)
[2020-06-07] MEDS: cefTRIAXone 1GM/50ML D5W 50 ML IV SCH (10:01)
[2020-06-07] MEDS: SPIRONOLACTONE 25 MG TAB PO SCH (10:02)
[2020-06-07] MEDS: POTASSIUM CHL 20 Meq TABLET PO SCH (10:02)
[2020-06-07] MEDS: NIFEdipine ER 30 MG TAB PO SCH (10:03)
[2020-06-07] MEDS: LORATADINE 10 MG TAB PO SCH (10:03)
[2020-06-07] MEDS: PHENYTOIN SODIUM 100 MG CAP PO SCH (10:03)
[2020-06-07] MEDS: CLOPIDOGREL BISULFATE 75 MG TAB PO SCH (10:04)
[2020-06-07] MEDS: CITALOPRAM HYDROBR 20 MG TAB PO SCH (10:04)
[2020-06-07] MEDS: CARVEDILOL 12.5 MG TAB PO SCH (10:04)
[2020-06-07] MEDS: MONTELUKAST SODIUM 10 MG TAB PO SCH (10:04)
[2020-06-07] MEDS: PANTOPRAZOLE 40 MG TAB PO SCH (10:05)
[2020-06-07] MEDS: LIDOCAINE 5% TOPICAL PATCH TOP SCH (10:09)
[2020-06-07] MEDS ORDERED: CAR125T PO (10:54)
--- NOTE | 2020-06-07 16:03 | NUR ---
DISCHARGED PATIENT DISCHARGE PAPERWORK GIVEN TO PATIENT, QUESTIONS AND CONCERNS ANSWERED. PATIENT WAS DISCHARGED VIA A WHEELCHAIR WITH NO SIGNS OF DISTRESS. PATIENT HAS PORTABLE OXYGEN WHICH WAS USED FOR DISCHARGE. TELEMONITOR 68 REMOVED AND SENT TO ICU HEART. STORM REMOVED, CATHETER INTACT, AND NO SIGNS OF INFECTION.
== END 2020-06-07 16:00 | disposition home or self-care (01) | DRG 189 ==
LOC: ER 22:35 → EDBD 22:35 → OVERFLOW 22:36 → WEST WING 06-02 12:01 → TELE-WESTW 06-03 18:05
PROVIDERS: ADMIT Hospitalist; ATTEND Internal Medicine
DX: J96.20 Acute and chronic respiratory failure, unspecified whether with hypoxia or hypercapnia (principal); I50.33 Acute on chronic diastolic (congestive) heart failure; J44.1 Chronic obstructive pulmonary disease with (acute) exacerbation; Z68.43 Body mass index [BMI] 50.0-59.9, adult; I11.0 Hypertensive heart disease with heart failure; E66.01 Morbid (severe) obesity due to excess calories; E11.9 Type 2 diabetes mellitus without complications; G40.909 Epilepsy, unspecified, not intractable, without status epilepticus; G89.29 Other chronic pain; D64.9 Anemia, unspecified; I25.10 Atherosclerotic heart disease of native coronary artery without angina pectoris; Z79.4 Long term (current) use of insulin; Z85.3 Personal history of malignant neoplasm of breast; Z87.891 Personal history of nicotine dependence; Z99.81 Dependence on supplemental oxygen; Z80.0 Family history of malignant neoplasm of digestive organs; Z82.3 Family history of stroke; Z82.49 Family history of ischemic heart disease and other diseases of the circulatory system; Z88.0 Allergy status to penicillin; Z88.1 Allergy status to other antibiotic agents
CPT/HCPCS: 36415; 36600; 71045; 71275; 78452; 80048; 80053; 80061; 80185; 81001; 82805; 82962; 83036; 83605; 83735; 83880; 84484; 85025; 87040; 87081; 93005; 93017; 94640; 96365; 96375; 96376; G0378; J0696; J1815; J1885; J2405

== ENCOUNTER 2021-09-30 14:40 | Emergency (ER) | payer OTHER, BC, MEDICAID ==
[~2021-09-30] VITALS: Ht 165.1 cm; Wt 181.4 kg
[~2021-09-30 14:40] MED LIST changes: +BUPR-160 PO; -BUPR100T14 PO; +CAR125T PO; -CARV25TA55 PO; -FURO40TA4 PO; +MONT-8 OR; -MONT10TA34 OR; -PERCOT PO; -ZOLP10TA PO
[2021-09-30] MEDS ORDERED: OXYCODONE W/ ACETAMINOPHEN 5/325MG TABLET PO ONE ×2 (18:30→23:15)
[2021-09-30] MEDS ORDERED: diazePAM 5 MG TAB PO ONE (18:30)
[2021-09-30] MEDS ORDERED: diazePAM 5 MG TAB ONE (18:31)
[2021-09-30] MEDS ORDERED: OXYCODONE W/ ACETAMINOPHEN 5/325MG TABLET ONE (18:32)
[2021-09-30 21:30] LABS: Urine Bacteria NONE SEEN /hpf (None Seen); Urine Blood Negative /uL (Negative); Urine Specific Gravity 1.014 (1.001-1.035); Urine WBC <1 /hpf (0 - 5)
[2021-09-30] MEDS ORDERED: AZITHROMYCIN 250 MG TAB PO ONE (23:15)
[2021-09-30] MEDS ORDERED: cefTRIAXone W LIDOCAINE 1 GM IM IM ONE (23:15)
[2021-09-30] MEDS ORDERED: PRED20TA2 PO (23:23)
[2021-09-30] MEDS ORDERED: PERCOT PO (23:23)
[2021-09-30] MEDS ORDERED: AZIT1POW12 PO (23:23)
[2021-09-30] MEDS ORDERED: cefTRIAXone SOD 1,000 MG VL ONE (23:25)
[2021-10-01 01:00] VITALS: BP 148/86
== END 2021-09-30 23:10 | disposition home or self-care (01) ==
LOC: EDBD 14:40 → ER 14:40
DX: S33.5XXA Sprain of ligaments of lumbar spine, initial encounter (principal); J18.9 Pneumonia, unspecified organism; M79.10 Myalgia, unspecified site; I11.0 Hypertensive heart disease with heart failure; I50.9 Heart failure, unspecified; J44.9 Chronic obstructive pulmonary disease, unspecified; E11.9 Type 2 diabetes mellitus without complications; Z87.891 Personal history of nicotine dependence; Z79.4 Long term (current) use of insulin; Z79.899 Other long term (current) drug therapy; Z88.0 Allergy status to penicillin; Z88.1 Allergy status to other antibiotic agents; Z88.8 Allergy status to other drugs, medicaments and biological substances; X58.XXXA Exposure to other specified factors, initial encounter; Y93.89 Activity, other specified; Y92.89 Other specified places as the place of occurrence of the external cause; Y99.8 Other external cause status
CPT/HCPCS: 70450; 71045; 72131; 74176; 81001; 82962; 96372; 99285; J0696

== ENCOUNTER 2022-02-11 11:42 | Inpatient (IN) | payer OTHER, MEDICAID, BC ==
[~2022-02-11] VITALS: Ht 165.1 cm; Wt 133.2 kg
[~2022-02-11 11:42] MED LIST changes: +AZIT1POW12 PO; +PERCOT PO; +PRED20TA2 PO
[2022-02-11] MEDS ORDERED: ONDANSETRON HCL 4 MG/2 ML VIAL IV ONE ×2 (12:15)
[2022-02-11] MEDS ORDERED: ASPirin 81 mg TAB PO ONE (12:15)
[2022-02-11] MEDS ORDERED: MORPHINE SULFATE 4 MG/ML SYR/VIAL IV ONE (12:15)
[2022-02-11 13:11] LABS: Basophils # (auto) 0.1 10 ^3/uL (0-0.2); Basophils % (auto) 1.2 % (0.0-2.0); Eosinophils # (auto) 0 10 ^3/uL (0-0.8); Eosinophils % (auto) 0.5 % (0.0-7.0); Hematocrit 35.3 % (36.0-46.0); Hemoglobin 11.6 g/dL (12.2-16.2); Lymphocytes # (auto) 2.2 10 ^3/uL (0.4-5.4); Lymphocytes % (auto) 31.8 % (10.0-50.0); Mean Corpuscular Hemoglobin 29.7 pg (28.0-32.0); Mean Corpuscular Hgb Conc. 32.9 g/dL (32.0-36.0); Mean Corpuscular Volume 90.3 fL (80.0-100.0); Monocytes # (auto) 0.5 10 ^3/uL (0-1.3); Monocytes % (auto) 7.9 % (0.0-12.0); Neutrophils % (auto) 58.6 % (37.0-80.0); Nucleated Red Blood Cells % 0.1 %; Red Blood Cells 3.91 10^6/uL (4.0-5.20); Red Cell Distribution Width 14.5 % (11.8-14.3); White Blood Cell 6.8 10^3/uL (4.4-10.8)
[2022-02-11 13:24] LABS: INR 1.09 (0.9-1.15); Partial Thromboplastin Time 28.2 sec (23.6-33.0)
[2022-02-11 14:02] LABS: Albumin 3.7 g/dL (3.4-5.0); Calcium 9.1 mg/dL (8.5-10.1); Magnesium 2.5 mg/dL (1.6-2.6); Potassium 3.4 mmol/L (3.5-5.1)
[2022-02-11 14:05] LABS: BUN/Creatinine Ratio 21.4; Bilirubin, Total 0.2 mg/dL (0.2-1.0); Total Protein 8.6 g/dL (6.4-8.2)
[2022-02-11] MEDS ORDERED: POTASSIUM CHL 20 Meq TABLET PO ONE (15:30)
[2022-02-11] MEDS ORDERED: NITROGLYCERIN 0.4 MG SL TAB SL PRN (15:30)
[2022-02-11] MEDS ORDERED: MORPHINE SULFATE INJECTION 2 MG/ML SYRG IV PRN (15:30)
[2022-02-11] MEDS ORDERED: DEXTROSE (50%) 50ML SYRG IV ONE (15:30)
[2022-02-11] MEDS ORDERED: LORazepam 0.5 MG TAB PO PRN (16:00)
[2022-02-11] MEDS ORDERED: ONDANSETRON HCL 4 MG/2 ML VIAL IV PRN (16:00)
[2022-02-11] MEDS ORDERED: HYDROcodone-ACET 5/325MG TAB PO ONE (16:00)
[2022-02-11] MEDS ORDERED: CLINDAMYCIN 600MG IV 50 ML IV ONE (16:00)
[2022-02-11] MEDS ORDERED: hydrALAZINE HCL 20 MG/ML VL IV PRN (16:00)
[2022-02-11] MEDS ORDERED: DOCUSATE SOD 100 MG CAP PO PRN (16:00)
[2022-02-11] MEDS ORDERED: BUDESONIDE (INHALATION) 0.5 MG/2 ML NEB NEB ONE (16:00)
[2022-02-11] MEDS ORDERED: PANTOPRAZOLE 40 MG/10 ML VIAL INJ IV ONE (16:00)
[2022-02-11] MEDS ORDERED: levoFLOXacin 750MG 150 ML IV ONE (16:00)
[2022-02-11] MEDS ORDERED: IPRATROPIUM BROM 0.5 MG/2.5ML INH SOL NEB ONE (16:00)
[2022-02-11 16:32] LABS: Magnesium 2.3 mg/dL (1.6-2.6); Phosphorus 2.7 mg/dL (2.5-4.90)
[2022-02-11] MEDS: D5W/SOD CHLO 0.9% 1,000 ML IV SCH (16:40)
[2022-02-11 18:00] VITALS: BP 148/78
[2022-02-11] MEDS: ALBUTEROL SULF 2.5 MG/0.5ML(0.5%) NEB SOLN NEB PRN ×2 (18:47→21:44)
[2022-02-11] MEDS: IPRATROPIUM BROM 0.5 MG/2.5ML INH SOL NEB SCH ×2 (18:47→21:44)
[2022-02-11] MEDS: BUDESONIDE (INHALATION) 0.5 MG/2 ML NEB NEB SCH (18:47)
[2022-02-11] MEDS ORDERED: IPRATROPIUM BROM 0.5 MG/2.5ML INH SOL NEB SCH (20:00)
[2022-02-11] MEDS ORDERED: HYDROcodone-ACET 5/325MG TAB PO PRN (22:00)
[2022-02-11] MEDS: POTASSIUM CHL 20 Meq TABLET PO SCH (23:53)
[2022-02-11] MEDS: ATORVASTATIN 20 MG TAB PO SCH (23:53)
[2022-02-11] MEDS: CLINDAMYCIN 600MG IV 50 ML IV SCH (23:53)
[2022-02-11] MEDS: methylPREDNISolone SOD SUCC 40 MG/ML VL IV SCH (23:54)
[2022-02-12] MEDS ORDERED: INSLANTI SC (00:58)
[2022-02-12] MEDS: IPRATROPIUM BROM 0.5 MG/2.5ML INH SOL NEB SCH ×6 (02:10→21:59)
[2022-02-12 05:00] VITALS: BP 156/80
[2022-02-12] MEDS: methylPREDNISolone SOD SUCC 40 MG/ML VL IV SCH ×3 (05:33→22:37)
[2022-02-12] MEDS ORDERED: MORPHINE SULFATE INJECTION 2 MG/ML SYRG IV ONE (05:45)
[2022-02-12] MEDS: ALBUTEROL SULF 2.5 MG/0.5ML(0.5%) NEB SOLN NEB PRN ×3 (07:06→21:59)
[2022-02-12] MEDS: BUDESONIDE (INHALATION) 0.5 MG/2 ML NEB NEB SCH ×2 (07:06→18:22)
[2022-02-12 09:00] VITALS: BP 156/77
[2022-02-12] MEDS: levoFLOXacin 750MG 150 ML IV SCH (10:58)
[2022-02-12] MEDS: CLINDAMYCIN 600MG IV 50 ML IV SCH (10:58)
[2022-02-12] MEDS: PANTOPRAZOLE 40 MG/10 ML VIAL INJ IV SCH (10:59)
[2022-02-12] MEDS: ASPirin 81 mg TAB PO SCH (10:59)
[2022-02-12] MEDS: POTASSIUM CHL 20 Meq TABLET PO SCH ×2 (10:59→22:36)
[2022-02-12 11:09] LABS: Basophils # (auto) 0 10 ^3/uL (0-0.2); Basophils % (auto) 0.6 % (0.0-2.0); Eosinophils # (auto) 0 10 ^3/uL (0-0.8); Eosinophils % (auto) 0.1 % (0.0-7.0); Hematocrit 33.9 % (36.0-46.0); Hemoglobin 11.1 g/dL (12.2-16.2); Lymphocytes # (auto) 0.8 10 ^3/uL (0.4-5.4); Lymphocytes % (auto) 19.5 % (10.0-50.0); Mean Corpuscular Hemoglobin 29.8 pg (28.0-32.0); Mean Corpuscular Hgb Conc. 32.9 g/dL (32.0-36.0); Mean Corpuscular Volume 90.6 fL (80.0-100.0); Monocytes # (auto) 0.2 10 ^3/uL (0-1.3); Monocytes % (auto) 4.6 % (0.0-12.0); Neutrophils # (auto) 3.3 10 ^3/uL (1.6-8.6); Neutrophils % (auto) 75.2 % (37.0-80.0); Nucleated Red Blood Cells % 0.1 %; Red Blood Cells 3.73 10^6/uL (4.0-5.20); Red Cell Distribution Width 14.6 % (11.8-14.3); White Blood Cell 4.3 10^3/uL (4.4-10.8)
[2022-02-12 11:29] LABS: INR 1.09 (0.9-1.15); Partial Thromboplastin Time 28.2 sec (23.6-33.0)
[2022-02-12] MEDS: D5W/SOD CHLO 0.9% 1,000 ML IV SCH (11:51)
[2022-02-12] MEDS ORDERED: MORPHINE SULF 15mg ER tab PO ONE (12:00)
[2022-02-12 13:00] VITALS: BP 138/66
[2022-02-12] MEDS ORDERED: ENOXAPARIN SOD 40 MG/0.4 ML SYRINGE SC ONE (14:15)
[2022-02-12 17:00] VITALS: BP 168/81
[2022-02-12 19:14] LABS: Albumin 3.2 g/dL (3.4-5.0); BUN/Creatinine Ratio 14.9; Magnesium 2.2 mg/dL (1.6-2.6); Potassium 4.4 mmol/L (3.5-5.1)
[2022-02-12 19:18] LABS: Bilirubin, Total 0.2 mg/dL (0.2-1.0); Phosphorus 2.4 mg/dL (2.5-4.90); Total Protein 7.5 g/dL (6.4-8.2)
[2022-02-12] MEDS: ACETAMINOPHEN 325 MG TAB PO PRN (20:33)
[2022-02-12 21:30] VITALS: BP 138/82
[2022-02-12] MEDS: MORPHINE SULF 15mg ER tab PO SCH (22:36)
[2022-02-12] MEDS: ATORVASTATIN 20 MG TAB PO SCH (22:36)
[2022-02-12] MEDS: ENOXAPARIN SOD 40 MG/0.4 ML SYRINGE SC SCH (22:37)
[2022-02-12 23:31] LABS: Urine Bacteria NONE SEEN /hpf (None Seen); Urine Blood 1+ /uL (Negative); Urine Specific Gravity 1.012 (1.001-1.035); Urine WBC 22 /hpf (0 - 5)
[2022-02-12 23:52] LABS: Alcohol, Urine < 3.0 mg/dL (0-10); Amphetamine Screen, Urine NEGATIVE (NEGATIVE); Barbiturate Scree,Urine NEGATIVE (NEGATIVE); Benzodiazephine Screen, Urine NEGATIVE (NEGATIVE); Cannabinoid Screen, Urine NEGATIVE (NEGATIVE); Cocaine Screen, Urine NEGATIVE (NEGATIVE); Opiate Scree,Urine POSITIVE (NEGATIVE); Phencyclidine Screen, Urine NEGATIVE (NEGATIVE)
[2022-02-13] MEDS: IPRATROPIUM BROM 0.5 MG/2.5ML INH SOL NEB SCH ×6 (02:45→21:56)
[2022-02-13] MEDS: ACETAMINOPHEN 325 MG TAB PO PRN (03:11)
[2022-02-13 05:00] VITALS: BP 148/86
[2022-02-13] MEDS: ALBUTEROL SULF 2.5 MG/0.5ML(0.5%) NEB SOLN NEB PRN ×3 (06:03→14:05)
[2022-02-13] MEDS: BUDESONIDE (INHALATION) 0.5 MG/2 ML NEB NEB SCH ×2 (06:03→18:32)
[2022-02-13] MEDS: MORPHINE SULF 15mg ER tab PO SCH ×3 (06:05→21:27)
[2022-02-13] MEDS: methylPREDNISolone SOD SUCC 40 MG/ML VL IV SCH ×3 (06:05→21:24)
[2022-02-13] MEDS ORDERED: PREG-111 PO (07:56)
[2022-02-13 09:00] VITALS: BP 182/104
[2022-02-13] MEDS: PANTOPRAZOLE 40 MG/10 ML VIAL INJ IV SCH (09:52)
[2022-02-13] MEDS: ASPirin 81 mg TAB PO SCH (09:52)
[2022-02-13] MEDS: levoFLOXacin 750MG 150 ML IV SCH (09:52)
[2022-02-13] MEDS: ENOXAPARIN SOD 40 MG/0.4 ML SYRINGE SC SCH ×2 (09:53→21:27)
[2022-02-13] MEDS: POTASSIUM CHL 20 Meq TABLET PO SCH ×2 (09:53→21:26)
[2022-02-13] MEDS ORDERED: ZOLP10TA PO (10:21)
[2022-02-13] MEDS ORDERED: PHENYTOIN SODIUM 100 MG CAP PO ONE (10:45)
[2022-02-13] MEDS ORDERED: CARVEDILOL 3.125 MG TAB PO ONE (10:45)
[2022-02-13] MEDS ORDERED: hydrALAZINE HCL 25 MG TAB PO ONE (10:45)
[2022-02-13] MEDS ORDERED: NIFEdipine ER 30 MG TAB PO ONE (10:45)
[2022-02-13] MEDS ORDERED: CITALOPRAM HYDROBR 20 MG TAB PO ONE (11:00)
[2022-02-13 13:00] VITALS: BP 160/82
[2022-02-13] MEDS ORDERED: PREGABALIN CAPSULE 75 MG CAP PO SCH (13:15)
[2022-02-13] MEDS: hydrALAZINE HCL 25 MG TAB PO SCH ×2 (14:07→21:25)
[2022-02-13 14:19] LABS: Protein, Urine 21.2 mg/dL (0.0-11.9)
[2022-02-13 14:49] LABS: CRP High Sensitivity 6.02 mg/dL (< 0.3)
[2022-02-13 17:00] VITALS: BP 169/91
[2022-02-13] MEDS: ZOLPIDEM TARTRATE 5 MG TAB PO PRN (20:37)
[2022-02-13] MEDS: CARVEDILOL 3.125 MG TAB PO SCH (21:25)
[2022-02-13] MEDS: PHENYTOIN SODIUM 100 MG CAP PO SCH (21:25)
[2022-02-13] MEDS: ATORVASTATIN 20 MG TAB PO SCH (21:26)
[2022-02-13] MEDS: PREGABALIN CAPSULE 75 MG CAP PO SCH (21:26)
[2022-02-13 22:00] VITALS: BP 173/83
[2022-02-14] MEDS: IPRATROPIUM BROM 0.5 MG/2.5ML INH SOL NEB SCH ×6 (02:00→21:29)
[2022-02-14 05:00] VITALS: BP 158/80
[2022-02-14] MEDS: methylPREDNISolone SOD SUCC 40 MG/ML VL IV SCH ×3 (05:25→21:34)
[2022-02-14] MEDS: hydrALAZINE HCL 25 MG TAB PO SCH ×3 (05:26→21:35)
[2022-02-14] MEDS: MORPHINE SULF 15mg ER tab PO SCH ×3 (05:26→21:37)
[2022-02-14] MEDS: BUDESONIDE (INHALATION) 0.5 MG/2 ML NEB NEB SCH ×2 (06:09→18:49)
[2022-02-14 09:00] VITALS: BP 138/81
[2022-02-14] MEDS: levoFLOXacin 750MG 150 ML IV SCH (09:59)
[2022-02-14] MEDS: ENOXAPARIN SOD 40 MG/0.4 ML SYRINGE SC SCH ×2 (10:00→21:37)
[2022-02-14] MEDS: PHENYTOIN SODIUM 100 MG CAP PO SCH ×2 (10:00→21:36)
[2022-02-14] MEDS: CARVEDILOL 3.125 MG TAB PO SCH ×2 (10:01→21:36)
[2022-02-14] MEDS: PREGABALIN CAPSULE 75 MG CAP PO SCH ×2 (10:01→21:36)
[2022-02-14] MEDS: NIFEdipine ER 30 MG TAB PO SCH (10:01)
[2022-02-14] MEDS: POTASSIUM CHL 20 Meq TABLET PO SCH ×2 (10:02→21:36)
[2022-02-14] MEDS: buPROPion HCL 75 MG TAB PO SCH (10:02)
[2022-02-14] MEDS: CITALOPRAM HYDROBR 20 MG TAB PO SCH (10:02)
[2022-02-14] MEDS: ASPirin 81 mg TAB PO SCH (10:03)
[2022-02-14] MEDS: PANTOPRAZOLE 40 MG/10 ML VIAL INJ IV SCH (10:03)
[2022-02-14 13:00] VITALS: BP 156/89
[2022-02-14 17:00] VITALS: BP 162/82
[2022-02-14] MEDS: ALBUTEROL SULF 2.5 MG/0.5ML(0.5%) NEB SOLN NEB PRN ×2 (18:49→21:29)
[2022-02-14 20:00] VITALS: BP 162/82
[2022-02-14] MEDS: ZOLPIDEM TARTRATE 5 MG TAB PO PRN (20:06)
[2022-02-14] MEDS: ATORVASTATIN 20 MG TAB PO SCH (21:36)
[2022-02-14 22:00] VITALS: BP 140/59
[2022-02-15] MEDS: IPRATROPIUM BROM 0.5 MG/2.5ML INH SOL NEB SCH ×6 (02:00→22:03)
[2022-02-15 05:00] VITALS: BP 105/64
[2022-02-15] MEDS: hydrALAZINE HCL 25 MG TAB PO SCH ×3 (05:19→22:06)
[2022-02-15] MEDS: methylPREDNISolone SOD SUCC 40 MG/ML VL IV SCH ×3 (05:19→22:04)
[2022-02-15] MEDS: MORPHINE SULF 15mg ER tab PO SCH ×3 (05:20→22:04)
[2022-02-15] MEDS: BUDESONIDE (INHALATION) 0.5 MG/2 ML NEB NEB SCH ×2 (05:49→18:35)
[2022-02-15 09:00] VITALS: BP 137/73
[2022-02-15] MEDS: CARVEDILOL 3.125 MG TAB PO SCH ×2 (10:00→22:05)
[2022-02-15] MEDS: levoFLOXacin 750MG 150 ML IV SCH (10:15)
[2022-02-15] MEDS: ASPirin 81 mg TAB PO SCH (10:16)
[2022-02-15] MEDS: PANTOPRAZOLE 40 MG/10 ML VIAL INJ IV SCH (10:16)
[2022-02-15] MEDS: CITALOPRAM HYDROBR 20 MG TAB PO SCH (10:17)
[2022-02-15] MEDS: PHENYTOIN SODIUM 100 MG CAP PO SCH ×2 (10:17→22:07)
[2022-02-15] MEDS: PREGABALIN CAPSULE 75 MG CAP PO SCH ×2 (10:18→22:04)
[2022-02-15] MEDS: POTASSIUM CHL 20 Meq TABLET PO SCH ×2 (10:18→22:06)
[2022-02-15] MEDS: ENOXAPARIN SOD 40 MG/0.4 ML SYRINGE SC SCH ×2 (10:19→22:08)
[2022-02-15] MEDS: buPROPion HCL 75 MG TAB PO SCH (10:19)
[2022-02-15] MEDS: NIFEdipine ER 30 MG TAB PO SCH (10:19)
[2022-02-15 13:00] VITALS: BP 156/89
[2022-02-15] MEDS: METHOCARBAMOL 500 MG TAB PO PRN ×4 (13:02→22:16)
[2022-02-15 17:03] VITALS: BP 155/77
[2022-02-15 22:00] VITALS: BP 130/73
[2022-02-15] MEDS: ZOLPIDEM TARTRATE 5 MG TAB PO PRN (22:03)
[2022-02-15] MEDS: ALBUTEROL SULF 2.5 MG/0.5ML(0.5%) NEB SOLN NEB PRN (22:04)
[2022-02-15] MEDS: DOCUSATE SOD 100 MG CAP PO SCH (22:06)
[2022-02-15] MEDS: ATORVASTATIN 20 MG TAB PO SCH (22:06)
[2022-02-16] MEDS: IPRATROPIUM BROM 0.5 MG/2.5ML INH SOL NEB SCH ×6 (02:00→23:01)
[2022-02-16] MEDS: ACETAMINOPHEN 325 MG TAB PO PRN (04:24)
[2022-02-16 05:00] VITALS: BP 127/63
[2022-02-16] MEDS: MORPHINE SULF 15mg ER tab PO SCH ×3 (05:35→21:30)
[2022-02-16] MEDS: methylPREDNISolone SOD SUCC 40 MG/ML VL IV SCH ×3 (05:35→21:31)
[2022-02-16] MEDS: hydrALAZINE HCL 25 MG TAB PO SCH ×3 (05:36→21:29)
[2022-02-16] MEDS: BUDESONIDE (INHALATION) 0.5 MG/2 ML NEB NEB SCH ×2 (05:57→18:30)
[2022-02-16] MEDS: ALBUTEROL SULF 2.5 MG/0.5ML(0.5%) NEB SOLN NEB PRN ×4 (05:57→23:01)
[2022-02-16] MEDS: PANTOPRAZOLE 40 MG/10 ML VIAL INJ IV SCH (08:10)
[2022-02-16] MEDS: ENOXAPARIN SOD 40 MG/0.4 ML SYRINGE SC SCH ×2 (08:11→21:32)
[2022-02-16] MEDS: ASPirin 81 mg TAB PO SCH (08:12)
[2022-02-16] MEDS: buPROPion HCL 75 MG TAB PO SCH (08:12)
[2022-02-16] MEDS: PREGABALIN CAPSULE 75 MG CAP PO SCH ×2 (08:12→21:26)
[2022-02-16] MEDS: DOCUSATE SOD 100 MG CAP PO SCH ×2 (08:12→21:27)
[2022-02-16] MEDS: PHENYTOIN SODIUM 100 MG CAP PO SCH ×2 (08:13→21:31)
[2022-02-16] MEDS: POTASSIUM CHL 20 Meq TABLET PO SCH ×2 (08:13→21:28)
[2022-02-16] MEDS: CITALOPRAM HYDROBR 20 MG TAB PO SCH (08:14)
[2022-02-16] MEDS: CARVEDILOL 3.125 MG TAB PO SCH ×2 (08:14→21:28)
[2022-02-16] MEDS: NIFEdipine ER 30 MG TAB PO SCH (08:15)
[2022-02-16] MEDS: levoFLOXacin 750MG 150 ML IV SCH (08:16)
[2022-02-16 09:00] VITALS: BP 129/72
[2022-02-16] MEDS ORDERED: DEXTROSE (50%) 50ML SYRG IV PRN (10:00)
[2022-02-16] MEDS: ACCU-CHEK COMFORT CURVE STRIP VI SCH ×3 (11:39→21:10)
[2022-02-16] MEDS: CYCLOBENZAPRINE HCL 10 MG TAB PO PRN (11:39)
[2022-02-16] MEDS: InsuLIN REG 1unit/0.01ml Soln (100units/ml) SC SCH ×2 (12:00→19:00)
[2022-02-16 13:00] VITALS: BP 147/77
[2022-02-16 17:00] VITALS: BP 158/76
[2022-02-16] MEDS: ATORVASTATIN 20 MG TAB PO SCH (21:28)
[2022-02-16 22:00] VITALS: BP 141/80
[2022-02-16] MEDS ORDERED: InsuLIN REG 1unit/0.01ml Soln (100units/ml) SC SCH (22:00)
[2022-02-16] MEDS: ZOLPIDEM TARTRATE 5 MG TAB PO PRN (22:23)
[2022-02-17] MEDS: CYCLOBENZAPRINE HCL 10 MG TAB PO PRN ×2 (00:34→08:12)
[2022-02-17] MEDS: ACETAMINOPHEN 325 MG TAB PO PRN (00:38)
[2022-02-17] MEDS: IPRATROPIUM BROM 0.5 MG/2.5ML INH SOL NEB SCH ×4 (02:00→13:53)
[2022-02-17 05:00] VITALS: BP 115/82
[2022-02-17] MEDS: MORPHINE SULF 15mg ER tab PO SCH ×2 (05:42→13:52)
[2022-02-17] MEDS: hydrALAZINE HCL 25 MG TAB PO SCH (05:42)
[2022-02-17] MEDS: methylPREDNISolone SOD SUCC 40 MG/ML VL IV SCH (05:42)
[2022-02-17] MEDS: ACCU-CHEK COMFORT CURVE STRIP VI SCH ×2 (05:47→12:00)
[2022-02-17] MEDS: InsuLIN REG 1unit/0.01ml Soln (100units/ml) SC SCH ×2 (05:47→12:00)
[2022-02-17] MEDS: ALBUTEROL SULF 2.5 MG/0.5ML(0.5%) NEB SOLN NEB PRN ×3 (06:26→13:54)
[2022-02-17] MEDS: BUDESONIDE (INHALATION) 0.5 MG/2 ML NEB NEB SCH (06:29)
[2022-02-17] MEDS: PANTOPRAZOLE 40 MG/10 ML VIAL INJ IV SCH (08:10)
[2022-02-17] MEDS: POTASSIUM CHL 20 Meq TABLET PO SCH (08:11)
[2022-02-17] MEDS: PHENYTOIN SODIUM 100 MG CAP PO SCH (08:11)
[2022-02-17] MEDS: ASPirin 81 mg TAB PO SCH (08:11)
[2022-02-17] MEDS: CARVEDILOL 3.125 MG TAB PO SCH (08:11)
[2022-02-17] MEDS: DOCUSATE SOD 100 MG CAP PO SCH (08:12)
[2022-02-17] MEDS: PREGABALIN CAPSULE 75 MG CAP PO SCH (08:12)
[2022-02-17] MEDS: CITALOPRAM HYDROBR 20 MG TAB PO SCH (08:12)
[2022-02-17] MEDS: NIFEdipine ER 30 MG TAB PO SCH (08:14)
[2022-02-17] MEDS: ENOXAPARIN SOD 40 MG/0.4 ML SYRINGE SC SCH (08:14)
[2022-02-17] MEDS: buPROPion HCL 75 MG TAB PO SCH (08:14)
[2022-02-17] MEDS: levoFLOXacin 750MG 150 ML IV SCH (08:20)
[2022-02-17 08:31] VITALS: BP 156/67
[2022-02-17] MEDS ORDERED: LEVO500T31 PO (10:03)
== END 2022-02-17 13:55 | disposition home or self-care (01) | DRG 193 ==
LOC: ER 11:42 → TELE 15:21 → TELE-CENTR 23:13
PROVIDERS: ADMIT Hospitalist; ATTEND Family Medicine
PROC: 05HB33Z Insertion of Infusion Device into Right Basilic Vein, Percutaneous Approach (ICD-10-PCS; principal; 2022-02-12)
PROC: B54MZZA Ultrasonography of Right Upper Extremity Veins, Guidance (ICD-10-PCS; 2022-02-12)
PROC: 5A09357 Assistance with Respiratory Ventilation, Less than 24 Consecutive Hours, Continuous Positive Airway Pressure (ICD-10-PCS; 2022-02-12)
DX: J18.9 Pneumonia, unspecified organism (principal); J96.20 Acute and chronic respiratory failure, unspecified whether with hypoxia or hypercapnia; K61.0 Anal abscess; J44.0 Chronic obstructive pulmonary disease with (acute) lower respiratory infection; J44.1 Chronic obstructive pulmonary disease with (acute) exacerbation; Z68.42 Body mass index [BMI] 45.0-49.9, adult; E66.01 Morbid (severe) obesity due to excess calories; I11.0 Hypertensive heart disease with heart failure; K57.90 Diverticulosis of intestine, part unspecified, without perforation or abscess without bleeding; E11.21 Type 2 diabetes mellitus with diabetic nephropathy; E11.40 Type 2 diabetes mellitus with diabetic neuropathy, unspecified; I25.5 Ischemic cardiomyopathy; I27.20 Pulmonary hypertension, unspecified; K59.00 Constipation, unspecified; I88.9 Nonspecific lymphadenitis, unspecified; G89.4 Chronic pain syndrome; E78.5 Hyperlipidemia, unspecified; J20.9 Acute bronchitis, unspecified; K59.03 Drug induced constipation; R07.89 Other chest pain; T40.605A Adverse effect of unspecified narcotics, initial encounter; R56.9 Unspecified convulsions; Z20.822 Contact with and (suspected) exposure to COVID-19; Z79.4 Long term (current) use of insulin; Z79.899 Other long term (current) drug therapy; Z80.9 Family history of malignant neoplasm, unspecified; I25.2 Old myocardial infarction; Y92.89 Other specified places as the place of occurrence of the external cause; Z82.3 Family history of stroke; Z82.49 Family history of ischemic heart disease and other diseases of the circulatory system; Z83.3 Family history of diabetes mellitus; Z85.3 Personal history of malignant neoplasm of breast; Z86.73 Personal history of transient ischemic attack (TIA), and cerebral infarction without residual deficits; Z87.891 Personal history of nicotine dependence; Z99.81 Dependence on supplemental oxygen; Z88.1 Allergy status to other antibiotic agents; Z88.0 Allergy status to penicillin; Z88.8 Allergy status to other drugs, medicaments and biological substances
CPT/HCPCS: 36415; 71045; 74176; 80053; 80061; 80185; 80307; 81001; 82550; 82728; 82962; 83036; 83615; 83690; 83735; 83880; 84100; 84156; 84443; 84484; 85025; 85379; 85610; 85652; 85730; 86141; 87040; 87086; 93005; 94640; 94660; 96374; 96375; 97116; 97163; 97530; C9113; G0378; J1815; J1956; J2405; J3490

== ENCOUNTER 2022-09-17 12:26 | Inpatient (IN) | payer OTHER, MEDICAID, BC ==
[~2022-09-17] VITALS: Ht 317.5 cm; Wt 136.3 kg
[~2022-09-17 12:26] MED LIST changes: -GABA300C10 PO; +LEVO500T31 PO; +PREG-111 PO; -PREG100C PO; +ZOLP10TA PO
[2022-09-17 13:06] LABS: Basophils # (auto) 0.1 10 ^3/uL (0-0.2); Eosinophils # (auto) 0.1 10 ^3/uL (0-0.8); Eosinophils % (auto) 2.3 % (0.0-7.0); Hematocrit 38.4 % (36.0-46.0); Hemoglobin 12.2 g/dL (12.2-16.2); Lymphocytes # (auto) 1.4 10 ^3/uL (0.4-5.4); Lymphocytes % (auto) 25.4 % (10.0-50.0); Mean Corpuscular Hemoglobin 28.8 pg (28.0-32.0); Mean Corpuscular Hgb Conc. 31.8 g/dL (32.0-36.0); Mean Corpuscular Volume 90.5 fL (80.0-100.0); Monocytes # (auto) 0.5 10 ^3/uL (0-1.3); Monocytes % (auto) 8.4 % (0.0-12.0); Neutrophils # (auto) 3.5 10 ^3/uL (1.6-8.6); Neutrophils % (auto) 62.9 % (37.0-80.0); Nucleated Red Blood Cells % 0.1 %; Red Blood Cells 4.24 10^6/uL (4.0-5.20); Red Cell Distribution Width 14.6 % (11.8-14.3); White Blood Cell 5.5 10^3/uL (4.4-10.8)
[2022-09-17 13:23] LABS: INR 0.97 (0.9-1.15); Partial Thromboplastin Time 27.2 sec (24.6-33.4)
[2022-09-17 13:24] LABS: Albumin 3.6 g/dL (3.4-5.0); Calcium 9.4 mg/dL (8.5-10.1); Potassium 3.9 mmol/L (3.5-5.1)
[2022-09-17 13:27] LABS: Bilirubin, Total 0.3 mg/dL (0.2-1.0); Total Protein 7.6 g/dL (6.4-8.2)
[2022-09-17] MEDS ORDERED: ASPirin 81 mg TAB PO ONE (14:45)
[2022-09-17] MEDS ORDERED: NITROGLYCERIN 0.4 MG SL TAB SL PRN ×2 (17:30)
[2022-09-17] MEDS ORDERED: MORPHINE SULFATE INJ 2 MG/ml SYRG IV PRN (17:30)
[2022-09-17] MEDS ORDERED: DEXTROSE (50%) 50ML SYRG IV PRN (17:30)
[2022-09-17] MEDS ORDERED: MORPHINE SULFATE 4 MG/ML SYR/VIAL IV PRN (17:30)
[2022-09-17] MEDS ORDERED: ACETAMINOPHEN 325 MG TAB PO PRN (17:30)
[2022-09-17] MEDS ORDERED: ENOXAPARIN SOD 30 MG/0.3 ML SYRINGE IV ONE (17:30)
[2022-09-17] MEDS ORDERED: ONDANSETRON HCL 4 MG/2 ML VIAL IV PRN (17:30)
[2022-09-17] MEDS ORDERED: cloNIDine 0.3 mg/24hr 7DAY PATCH TD SCH (17:30)
[2022-09-17 18:52] VITALS: BP 146/59
[2022-09-18] VITALS (8 sets, daily range): BP systolic 142–163; BP diastolic 66–81
[2022-09-18] MEDS: ALBUTEROL SULF 2.5 MG/0.5ML(0.5%) NEB SOLN NEB PRN ×2 (03:13→20:32)
[2022-09-18 03:27] LABS: Basophils # (auto) 0.1 10 ^3/uL (0-0.2); Basophils % (auto) 0.9 % (0.0-2.0); Eosinophils # (auto) 0.2 10 ^3/uL (0-0.8); Eosinophils % (auto) 2.9 % (0.0-7.0); Hematocrit 37.3 % (36.0-46.0); Hemoglobin 11.9 g/dL (12.2-16.2); Lymphocytes # (auto) 1.5 10 ^3/uL (0.4-5.4); Lymphocytes % (auto) 26.3 % (10.0-50.0); Mean Corpuscular Hemoglobin 28.8 pg (28.0-32.0); Mean Corpuscular Hgb Conc. 31.8 g/dL (32.0-36.0); Mean Corpuscular Volume 90.6 fL (80.0-100.0); Monocytes # (auto) 0.5 10 ^3/uL (0-1.3); Monocytes % (auto) 8.5 % (0.0-12.0); Neutrophils # (auto) 3.4 10 ^3/uL (1.6-8.6); Neutrophils % (auto) 61.4 % (37.0-80.0); Nucleated Red Blood Cells % 0.1 %; Red Blood Cells 4.11 10^6/uL (4.0-5.20); Red Cell Distribution Width 14.9 % (11.8-14.3); White Blood Cell 5.6 10^3/uL (4.4-10.8)
[2022-09-18 03:34] LABS: Potassium 3.9 mmol/L (3.5-5.1)
[2022-09-18 03:44] LABS: Albumin 3.5 g/dL (3.4-5.0); BUN/Creatinine Ratio 20.3; Bilirubin, Total 0.4 mg/dL (0.2-1.0); Calcium 9.2 mg/dL (8.5-10.1); Total Protein 7.9 g/dL (6.4-8.2)
[2022-09-18 03:45] LABS: INR 0.99 (0.9-1.15); Partial Thromboplastin Time 28.7 sec (24.6-33.4)
[2022-09-18] MEDS: buPROPion HCL 100 MG TAB PO SCH (06:27)
[2022-09-18] MEDS: hydrALAZINE HCL 25 MG TAB PO SCH ×3 (06:35→21:14)
[2022-09-18] MEDS: ACCU-CHEK COMFORT CURVE STRIP VI SCH ×4 (06:38→21:39)
[2022-09-18] MEDS: InsuLIN REG 1unit/0.01ml Soln (100units/ml) SC SCH ×4 (07:00→21:07)
[2022-09-18] MEDS: CARVEDILOL 12.5 MG TAB PO SCH ×2 (08:36→21:14)
[2022-09-18] MEDS: PHENYTOIN SODIUM 100 MG CAP PO SCH ×2 (08:36→21:15)
[2022-09-18] MEDS: PREGABALIN CAPSULE 75 MG CAP PO SCH ×2 (08:39→21:13)
[2022-09-18] MEDS: SPIRONOLACTONE 25 MG TAB PO SCH (08:46)
[2022-09-18] MEDS: LORATADINE 10 MG TAB PO SCH (08:47)
[2022-09-18] MEDS: DOCUSATE SOD 100 MG CAP PO SCH (08:48)
[2022-09-18] MEDS: NIFEdipine ER 30 MG TAB PO SCH (08:50)
[2022-09-18] MEDS: ASPirin 81 mg TAB PO SCH (08:50)
[2022-09-18] MEDS: MONTELUKAST SODIUM 10 MG TAB PO SCH (08:50)
[2022-09-18] MEDS: ESCITALOPRAM OXALATE 20 MG PO SCH (10:00)
[2022-09-18] MEDS ORDERED: HYDROcodone-ACET 5/325MG TAB PO PRN (20:45)
[2022-09-18] MEDS: MORPHINE SULFATE INJ 2 MG/ml SYRG IV PRN (21:13)
[2022-09-18] MEDS: ATORVASTATIN 20 MG TAB PO SCH ×2 (21:15→21:39)
[2022-09-19 05:00] VITALS: BP 159/71
[2022-09-19] MEDS: MORPHINE SULFATE INJ 2 MG/ml SYRG IV PRN ×2 (05:03→10:10)
[2022-09-19] MEDS: InsuLIN REG 1unit/0.01ml Soln (100units/ml) SC SCH ×2 (06:12→11:07)
[2022-09-19] MEDS: ACCU-CHEK COMFORT CURVE STRIP VI SCH ×2 (06:13→11:07)
[2022-09-19] MEDS: hydrALAZINE HCL 25 MG TAB PO SCH (06:13)
[2022-09-19] MEDS: buPROPion HCL 100 MG TAB PO SCH (06:17)
[2022-09-19 08:00] VITALS: BP 157/78
[2022-09-19 08:29] VITALS: BP 157/78
[2022-09-19] MEDS ORDERED: LEVO500T31 PO (09:45)
[2022-09-19] MEDS: ASPirin 81 mg TAB PO SCH (09:58)
[2022-09-19] MEDS: SPIRONOLACTONE 25 MG TAB PO SCH (09:58)
[2022-09-19] MEDS: CARVEDILOL 12.5 MG TAB PO SCH (09:59)
[2022-09-19] MEDS: NIFEdipine ER 30 MG TAB PO SCH (09:59)
[2022-09-19] MEDS: LORATADINE 10 MG TAB PO SCH (09:59)
[2022-09-19] MEDS: MONTELUKAST SODIUM 10 MG TAB PO SCH (10:00)
[2022-09-19] MEDS: PHENYTOIN SODIUM 100 MG CAP PO SCH (10:00)
[2022-09-19] MEDS: DOCUSATE SOD 100 MG CAP PO SCH (10:00)
[2022-09-19] MEDS: PREGABALIN CAPSULE 75 MG CAP PO SCH (10:00)
[2022-09-19] MEDS: ESCITALOPRAM OXALATE 20 MG PO SCH (10:00)
[2022-09-19 10:38] LABS: Urine Bacteria NONE SEEN /hpf (None Seen); Urine Blood TRACE /uL (Negative); Urine Specific Gravity 1.021 (1.001-1.035); Urine WBC 3 /hpf (0 - 5)
[2022-09-19 11:16] VITALS: BP 157/78
[2022-09-19 12:53] VITALS: BP 168/81
== END 2022-09-19 13:12 | disposition home or self-care (01) | DRG 313 ==
LOC: ER 12:26 → TELE 17:18 → TELE-CENTR 09-18 05:15
PROVIDERS: ADMIT Nurse Practitioner Family; ATTEND Nurse Practitioner Family
DX: R07.89 Other chest pain (principal); I50.33 Acute on chronic diastolic (congestive) heart failure; Z68.1 Body mass index [BMI] 19.9 or less, adult; I24.9 Acute ischemic heart disease, unspecified; J44.1 Chronic obstructive pulmonary disease with (acute) exacerbation; J45.901 Unspecified asthma with (acute) exacerbation; Z20.822 Contact with and (suspected) exposure to COVID-19; E11.36 Type 2 diabetes mellitus with diabetic cataract; E11.42 Type 2 diabetes mellitus with diabetic polyneuropathy; E66.01 Morbid (severe) obesity due to excess calories; I11.0 Hypertensive heart disease with heart failure; M79.7 Fibromyalgia; Z80.9 Family history of malignant neoplasm, unspecified; Z88.0 Allergy status to penicillin; Z88.8 Allergy status to other drugs, medicaments and biological substances; I25.2 Old myocardial infarction; Z82.3 Family history of stroke; Z82.49 Family history of ischemic heart disease and other diseases of the circulatory system; Z83.3 Family history of diabetes mellitus; Z86.73 Personal history of transient ischemic attack (TIA), and cerebral infarction without residual deficits; Z87.891 Personal history of nicotine dependence; Z88.1 Allergy status to other antibiotic agents; Z99.81 Dependence on supplemental oxygen
CPT/HCPCS: 36415; 71045; 80053; 80061; 80185; 81001; 82962; 83735; 83880; 84484; 85025; 85379; 85610; 85730; 87426; 87804; 93005; 93306; 94640; G0378; J1815

== ENCOUNTER → 2024-03-30 | Outpatient (CLI) | payer OTHER, MEDICAID, BC ==
[~2024-03-30] MED LIST changes: -BUPR-160 PO; +BUPR-346 PO; -CAR125T PO; +CARV-216 PO; -HYDR50TA15 PO; +HYDR50TA47 PO; -PHE100C PO; +PHEN1CAP60 PO; -PREG-111 PO; +PREG150C63 PO
[2024-03-30 13:26] LABS: Base Excess 3.4 mmol/L (-2.0-2.0)
== END | disposition home or self-care (01) ==
LOC: RT 12:20
PROVIDERS: ATTEND Internal Medicine
DX: J44.9 Chronic obstructive pulmonary disease, unspecified (principal)
CPT/HCPCS: 36600; 82805

== ENCOUNTER 2025-02-18 10:55 | Inpatient (IN) | payer OTHER, MEDICAID, BC ==
[~2025-02-18] VITALS: Ht 165.1 cm; Wt 132.0 kg
[~2025-02-18 10:55] MED LIST changes: +PHEN1CAP38 PO; -PHEN1CAP60 PO
--- NOTE | 2025-02-18 11:03 | ECG ---
[facility] Test Date: 2025-02-18 Test Time: 11:01:28 Pat Name: SANGEETA COLBERT Department: ED Room: 0289T Gender: F Floor Covering Contractor: AJAY : 1955 Requested By: NOELLE SANCHEZ Order Number: [id number] Reading MD: Gigi Farias Measurements Intervals [place] Rate: 75 P: 99 [place]: 218 QRS: 28 QRSD: 68 T: 96 QT: 392 QTc: 438 Interpretive Statements Sinus rhythm Inferior infarct, acute (RCA) Anterior infarct, old Lateral leads are also involved Probable RV involvement, suggest recording right precordial leads Artifact in lead(s) II,III,aVR,aVL,aVF,V3,V4,V5,V6 Electronically Signed On 02-21-2025 20:42:23 PDT by Gigi Farias Please click the below link to view image of tracing.
--- NOTE | 2025-02-18 11:04 | ED.PDOC ---
SOB-HPI HPI Comments 70 y.o female with PMHx DM, HTN, Seizures, Fibromyalgia, TN, CHF, COPD, UTI, Asthma presents to the ED via EMS for a chief complaint of SOB associated with left sided chest pain, a productive cough with green phlegm sputum, chills, cough and dysuria that started one week ago. Patient reports SOB worsened yesterday and states chest pain has been ongoing radiating to her back, despite taking NTG at home at 4am. Patient is on 3 liters of oxygen at home, despite using has not felt any respiratory relief. EMS reports diminished lung sounds on scene and gave a duo neb treatment that consist of 2.5 of albuterol and 0.5 of Atrovent with some relief and SPO2 at 97% on 6 L. Chief Complaint: Chest pain, shortness of breath Time Seen by MD: 10:57 Primary Care Provider: MELISSA Reviewed notes: Nurses Notes, Fisheries Manager Notes, Medications, Allergies Information Source: Patient, Emergency Med Personnel Mode of Arrival: EMS Severity: Moderate Timing: Days (1) Duration: Since onset Context: At Rest Prehospital treatment: 12 Lead EKG, Accucheck, Breathing Tx, Binder Stripper Machine, Oxygen Modifying Factors: Nothing Associated Signs and Symptoms: Cough If cough with SOB: Productive, Green Past Medical History PAST MEDICAL HISTORY: Asthma, Cancer, CHF, COPD, CVA, DM, HTN, TN, Seizures Past Medical History (Other): Breast Cancer in remission VP HR DIVERSITY History: No Pertinent VP HR DIVERSITY History, Other Family History Family History: Family hx of DM, Family hx of Cancer Social History Smoker: Quit Greater Than 1 Year Alcohol: Denies ETOH Use Drugs: Denies Drug Use Lives In: Home Constitutional: denies: chills, diaphoresis, fatigue, fever, malaise, sweats, weakness, others EENTM: denies: blurred vision, double vision, ear bleeding, ear discharge, ear drainage, ear pain, ear ringing, eye pain, eye redness, hearing loss, mouth pain, mouth swelling, nasal discharge, nose bleeding, nose congestion, nose pain, photophobia, tearing, throat pain, throat swelling, voice changes, others Respiratory: reports: cough, SOB at rest, shortness of breath, SOB with excertion; denies: hemoptysis, orthopnea, stridor, wheezing, others Cardiovascular: denies: chest pain, dizzy spells, diaphoresis, Dyspnea on exertion, edema, irregular heart beat, left arm pain, lightheadedness, palpitations, PND, syncope, others Gastrointestinal: denies: abdomen distended, abdominal pain, blood streaked bowels, constipated, diarrhea, dysphagia, difficulty swallowing, hematemesis, m oswaldo, nausea, poor appetite, poor fluid intake, rectal bleeding, rectal pain, vomiting, others Genitourinary: denies: abnormal vagina bleeding, burning, dyspareunia, dysuria, flank pain, frequency, hematuria, incontinence, pain, , vagina discharge, urgency, others Neurological: denies: dizziness, fainting, headache, left sided numbness, left sided weakness, numbness, paresthesia, pre-existing deficit, right sided numbness, right sided weakness, seizure, speech problems, tingling, tremors, weakness, others Musculoskeletal: denies: back pain, gout, joint pain, joint swelling, muscle pain, muscle stiffness, neck pain, others Integumetry: denies: bruises, change in color, change in hair/nails, dryness, laceration, lesions, lumps, rash, wounds, others Allergic/Immunocompromised: denies: Difficulty Healing, Frequent Infections, Hives, Itching, others Hematologic/Lymphatic: denies: anemia, blood clots, easy bleeding, easy bruising, swollen glands, others Endocrine: denies: excessive hunger, excessive sweating, excessive thirst, excessive urination, flushing, intolerance to cold, intolerance to heat, unexpla ined weight gain, unexplained weight loss, others Psychiatric: denies: anxiety, bipolar disorder, depression, hopeless, panic disorder, schizophrenia, sleepless, suicidal, others All Other Systems: Reviewed and Negative Physical Exam General Appearance: Mild Distress, Obese HEENT: Other (Pupils and face symmetric. Moist mucous membranes.) Neck: Full Range of Motion, Normal Inspection Respiratory: Accessory Muscle Use, Decreased Breath Sounds, Respiratory Distress, Rhonchi, Wheezing Cardiovascular: No JVD, Regular Rate/Rhythm Breast Exam: Deferred Gastrointestinal: Non Tender, Soft Genitalia: Deferred Pelvic: Deferred Rectal: Deferred Extremities: Leg edema, Normal inspection, Normal range of motion, Non-tender, Pedal edema Neurologic: Alert (Oriented x4), Normal Affect, Normal Mood, Other (Moves all extremities.) Cerebellar Function: NOT DONE Reflexes: NOT DONE Skin: NOT DONE Lymphatic: NOT DONE EKG EKG : Comments Sinus rhythm, rate 75, [place] prolonged at 218, normal QRS and QTC intervals, normal axis, possible old anteroseptal infarct, nonspecific T change. Was a procedure done? Was a procedure done?: No Differential Dx Differential Diagnosis: Asthma, Bronchitis, CHF, COPD, Hyperventilation, Myocardial infarction, Panic Attack, Pneumonia, Pneumothorax, Respiratory Distress, URI X-Ray, Labs, Meds, VS Vital Signs Date Time Temp Pulse Resp B/P (MAP) Pulse Ox O2 Delivery O2 Flow Rate FiO2 02/18/25 13:10 Nasal Cannula* 3 32 02/18/25 13:08 82 12 145/65 (91) 100 02/18/25 12:43 165/71 02/18/25 12:24 80 02/18/25 11:24 20 97 Nasal Cannula* 5 40 02/18/25 11:12 97 Nasal Cannula* 4 36 02/18/25 11:04 99.4 76 20 152/81 (104) 97 99.4 02/18/25 11:01 75 Lab Test 02/18/25 12:55 02/18/25 12:00 02/18/25 11:43 Range/Units Troponin I High Sensitivity 8 7 </=34 ng/L Urine Color Light-yellow Yellow Urine Clarity Clear Clear Urine pH 6.0 5.0-9.0 Urine Specific [place] 1.014 1.001-1.035 Urine Protein Negative Negative Urine Ketones Negative Negative Urine Blood Negative Negative /uL Urine Nitrite Negative Negative Urine Bilirubin Negative Negative Urine Urobilinogen Normal Negative mg/dL Urine Leukocyte Esterase Negative Negative /uL Urine RBC 1 0 - 4 /hpf Urine Microscopic WBC 0-5 /HPF Urine Squamous Epithelial Cells Few <5 /hpf Urine Bacteria Few H None Seen /hpf Urine Glucose Normal Normal mg/dL Influenza Type A Antigen Negative Negative Influenza Type B Antigen Negative Negative SARS-CoV-2 Antigen (Rapid) Negative NEGATIVE White Blood Count 5.2 4.4-10.8 10^3/uL Red Blood Count 4.10 4.0-5.20 10^6/uL Hemoglobin 11.8 L 12.2-16.2 g/dL Hematocrit 36.6 36.0-46.0 % Mean Corpuscular Volume 89.3 80.0-100.0 fL Mean Corpuscular Hemoglobin 28.8 28.0-32.0 pg Mean Corpuscular Hemoglobin Concent 32.3 32.0-36.0 g/dL Red Cell Distribution Width 15.2 H 11.8-14.3 % Platelet Count 189 140-450 10^3/uL Mean Platelet Volume 8.7 6.9-10.8 fL Neutrophils (%) (Auto) 65.1 37.0-80.0 % Lymphocytes (%) (Auto) 24.7 10.0-50.0 % Monocytes (%) (Auto) 8.1 0.0-12.0 % Eosinophils (%) (Auto) 1.6 0.0-7.0 % Basophils (%) (Auto) 0.5 0.0-2.0 % Neutrophils # (Auto) 3.4 1.6-8.6 10 ^3/uL Lymphocytes # (Auto) 1.3 0.4-5.4 10 ^3/uL Monocytes # (Auto) 0.4 0-1.3 10 ^3/uL Eosinophils # (Auto) 0.1 0-0.8 10 ^3/uL Basophils # (Auto) 0 0-0.2 10 ^3/uL Nucleated Red Blood Cells 0.1 % Sodium Level 141 136-145 mmol/L Potassium Level 4.0 3.5-5.1 mmol/L Chloride Level 102 98-107 mmol/L Carbon Dioxide Level 30 20-31 mmol/L Anion Gap 9 5-15 Blood Urea Nitrogen 15 9-23 mg/dL Creatinine 0.60 0.550-1.02 mg/dL Glomerular Filtration Rate Calc 97 >90 mL/min BUN/Creatinine Ratio 25.0 H 10.0-20.0 Serum Glucose 129 H 74-106 mg/dL Lactic Acid Level 1.7 0.4-2.0 mmol/L Calcium Level 9.9 8.7-10.4 mg/dL B-Type Natriuretic Peptide 36.76 0-100 pg/mL Current Medications Medications (Trade) Dose Ordered Sig/Cesar Route Start Time Stop Time Status Last Admin Methylprednisolone Sodium Succinate (Solu Medrol) 125 mg ONCE ONCE IV 02/18/25 11:00 02/18/25 11:03 DC 02/18/25 12:46 Levofloxacin/ Dextrose 100 ml @ 100 mls/hr ONCE ONCE IV 02/18/25 11:00 02/18/25 11:59 DC 02/18/25 12:43 Albuterol (Ventolin Medneb) 5 mg ONCE ONCE NEB 02/18/25 11:00 02/18/25 11:03 DC 02/18/25 11:26 Ipratropium [place] (Atrovent Medneb) 0.5 mg ONCE ONCE NEB 02/18/25 11:00 02/18/25 11:03 DC 02/18/25 11:27 Furosemide (Lasix Injection) 40 mg ONCE ONCE IV 02/18/25 11:00 02/18/25 11:03 DC 02/18/25 12:43 Acetaminophen (Tylenol Tablet Or Capsule) 1,000 mg ONCE ONCE PO 02/18/25 11:00 02/18/25 11:03 DC 02/18/25 12:43 PROCEDURE(s): CXRP - CHEST PORTABLE REASON: sob cough ORDER NUMBER(s): [id number], ACCESSION NUMBER(s): [id number] EXAM: XY CHEST PORTABLE Indication: sob cough Technique: Single frontal view of the chest was obtained Comparison: CHEST PORTABLE on DOS: 09/17/22, CXRP on DOS: 09/17/22, CHEST PORTABLE on DOS: 02/11/22, CXRP on DOS: 02/11/22 FINDINGS: Lines and Tubes: None Lungs: Mild pulmonary vascular congestion. Pleura: No effusion. No pneumothorax. Cardiomediastinal contours: Cardiomegaly. Bones: No acute osseous abnormality. IMPRESSION: Cardiomegaly with mild pulmonary vascular congestion. X-Ray, Labs, Meds, VS Comment 70-year-old female with a history of CHF, COPD on home O2 at 3 L, diabetes, hypertension and morbid obesity complaining of productive cough and difficulty breathing Vitals remarkable for hypoxia; oxygen saturation 88% on 3 L nasal cannula, currently 97 % on 6 L, BP 165/71 Exam remarkable for tachypnea and diminished breath sounds Rhythm strip independently interpreted by me: Sinus rhythm, rate 75, no ectopy. Chest x-ray IMPRESSION: Cardiomegaly with mild pulmonary vascular congestion. CBC, metabolic panel, BNP, troponin, lactate and UA unremarkable, flu and COVID negative Patient treated with the following in the ED: Albuterol 5 mg/Atrovent 0.5 mg nebulized, Solu-Medrol 125 mg IV, Lasix 40 mg IV, Levaquin 500 mg IV On re-evaluation, patient states of breath has improved. Oxygen saturation is 97% on 6 L nasal cannula Plan is to admit the patient for respiratory support as needed Time of 1ST Reevaluation: 12:00 Reevaluation 1ST: Unchanged Time of 2ND Reevaluation: 13:35 Reevaluation 2ND: Improved Patient Education/Counseling: Diagnosis, Treatment Family Education/Counseling: No Family Present Departure 1 Departure Time of Disposition: 13:35 Impression: Primary Impression: Acute and chronic respiratory failure Additional Impressions: COPD exacerbation CHF exacerbation Qualified Codes: I50.9 - Heart failure, unspecified Disposition: ADMITTED INPATIENT Admit to: Tele Condition: Guarded Critical Care Note Critical Care Time?: Yes (35 min-critical care time only) Critical care comment: Critical care time including multiple bedside re-evaluations, review of lab and imaging studies, discussion of the case with the admitting provider. Patient is high risk for respiratory decompensation. Stability Stability form required: No Heart Score Heart Score: Heart Score Response (Comments) Value History Slightly Suspicious 0 EKG Repolarization Disturb 1 Age >65 2 Risk Factors >3 or Hx ASHD 2 Troponin Normal limit 0 Total 5 I personally scribed for NOELLE LAUGHLIN MD ([facility] on 02/18/25 at 11:04. Electronically submitted by Lydia Cabrera ([facility]). I personally scribed for NOELLE LAUGHLIN MD ([facility]) on 02/18/25 at 11:17. Electronically submitted by Lydia Cabrera ([facility]). I personally scribed for NOELLE LAUGHLIN MD ([facility]I) on 02/18/25 at 12:29. Electronically submitted by Lydia Cabrera ([facility]). NOELLE LAUGHLIN MD February 18, 2025 11:04
[2025-02-18] MEDS: ALBUTEROL SULF 2.5 MG/0.5ML(0.5%) NEB SOLN NEB ONE (11:26)
[2025-02-18] MEDS: IPRATROPIUM BROM 0.5 MG/2.5ML INH SOL NEB ONE (11:27)
[2025-02-18 11:58] LABS: Basophils # (auto) 0 10 ^3/uL (0-0.2); Basophils % (auto) 0.5 % (0.0-2.0); Eosinophils # (auto) 0.1 10 ^3/uL (0-0.8); Eosinophils % (auto) 1.6 % (0.0-7.0); Hematocrit 36.6 % (36.0-46.0); Hemoglobin 11.8 g/dL (12.2-16.2); Lymphocytes # (auto) 1.3 10 ^3/uL (0.4-5.4); Lymphocytes % (auto) 24.7 % (10.0-50.0); Mean Corpuscular Hemoglobin 28.8 pg (28.0-32.0); Mean Corpuscular Hgb Conc. 32.3 g/dL (32.0-36.0); Mean Corpuscular Volume 89.3 fL (80.0-100.0); Monocytes # (auto) 0.4 10 ^3/uL (0-1.3); Monocytes % (auto) 8.1 % (0.0-12.0); Neutrophils # (auto) 3.4 10 ^3/uL (1.6-8.6); Neutrophils % (auto) 65.1 % (37.0-80.0); Nucleated Red Blood Cells % 0.1 %; Platelet Count (auto) 189 10^3/uL (140-450); Red Cell Distribution Width 15.2 % (11.8-14.3); White Blood Cell 5.2 10^3/uL (4.4-10.8)
[2025-02-18 12:17] LABS: Chloride 102 mmol/L (98-107); Sodium 141 mmol/L (136-145)
[2025-02-18 12:18] LABS: Anion Gap 9 (5-15); Carbon Dioxide 30 mmol/L (20-31)
[2025-02-18 12:19] LABS: Calcium 9.9 mg/dL (8.7-10.4)
[2025-02-18 12:24] LABS: Blood Urea Nitrogen 15 mg/dL (9-23); Glucose 129 mg/dL (74-106)
--- NOTE | 2025-02-18 12:42 | DVH ---
EXAM: XY CHEST PORTABLE Indication: sob cough Technique: Single frontal view of the chest was obtained Comparison: CHEST PORTABLE on DOS: 09/17/22, CXRP on DOS: 09/17/22, CHEST PORTABLE on DOS: 02/11/22, CXR P on DOS: 02/11/22 FINDINGS: Lines and Tubes: None Lungs: Mild pulmonary vascular congestion. Pleura: No effusion. No pneumothorax. Cardiomediastinal contours: Cardiomegaly. Bones: No acute osseous abnormality. IMPRESSION: Cardiomegaly with mild pulmonary vascular congestion.
[2025-02-18] MEDS: FUROSEMIDE 40 MG/4 ML VIAL IV ONE (12:43)
[2025-02-18] MEDS: ACETAMINOPHEN 500 MG TAB or CAP PO ONE (12:43)
[2025-02-18] MEDS: levoFLOXacin 500MG 100 ML IV ONE (12:43)
[2025-02-18] MEDS: methylPREDNISolone SOD SUCC 125 MG/2 ML VL IV ONE (12:46)
[2025-02-18 12:50] LABS: COVID19 ANTIGEN SOFIA FIA NEGATIVE (NEGATIVE); Rapid Influenza A Negative (Negative); Rapid Influenza B Negative (Negative)
[2025-02-18 13:02] LABS: Urine Bacteria FEW /hpf (None Seen); Urine Blood Negative /uL (Negative); Urine Clarity Clear (Clear); Urine Color Light-Yellow (Yellow); Urine Protein, UAD Negative (Negative); Urine Specific Gravity 1.014 (1.001-1.035); Urine Squamous Epithelial Cell FEW /hpf (<5); Urine Urobilinogen Normal (Negative)
[2025-02-18] MEDS ORDERED: DEXTROSE (50%) 50ML SYRG IV PRN (16:00)
[2025-02-18] MEDS ORDERED: ACETAMINOPHEN 325 MG TAB PO PRN (16:00)
[2025-02-18] MEDS ORDERED: hydrALAZINE HCL 20 MG/ML VL IV PRN (16:00)
[2025-02-18] MEDS ORDERED: DOCUSATE SOD 100 MG CAP PO PRN (16:00)
--- NOTE | 2025-02-18 16:03 | DVHHP2 ---
History of Present Illness Reason for Visit: COPD with acute exacerbation History of Present Illness The patient is a 70-year-old female with multiple past medical history including CHF, COPD, CVA, seizures, and diabetes mellitus who presented to [facility] ED with complaint of shortness of breaths. Patient reports symptoms progressively get worse with cough with greenish phlegm sputum, left-sided chest pain, dysuria, getting worse that prompted this visit. Patient was seen and evaluated in the ED, laboratory data shows WBC 5.2, platelets 189, sodium 141, potassium 4.0, BUN 15, creatinine 0.60, glucose 129, BNP 36.76, troponin 8, blood pressure 145/65, pulse 82, temperature 99.4� F, O2 saturation 99% on oxygen. Chest x-ray revealing, cardiomegaly with mild pulmonary vascular congestion. Patient was started on IV Solu-Medrol, please see medication orders section in the computer. On my assessment, patient denied chest pain, no headache, no dizziness, currently on oxygen, no diaphoresis, no nausea, no vomiting, no fever, no chills. Patient was admitted for further evaluation and medical management. Past Medical History Asthma, Cancer, CHF, COPD, CVA, DM, HTN, [place], Seizures Past Surgical History Breast Cancer in remission Family History Reviewed, noncontributory to the management of this case. Past Social History The patient lives at home, denies smoking, alcohol or illicit drugs abuse. Review of Systems Constitutional: Yes: Weakness; No: Fever, Chills, Sweats, Malaise, Other Eyes: No: Pain, Vision change, Conjunctivae inflammation, Eyelid inflammation, Other, Redness ENT: No: Ear pain, Ear discharge, Nose pain, Nose discharge, Nose congestion, Mouth pain, Mouth swelling, Throat pain, Throat swelling, Other Respiratory: Cough, Shortness of breath, SOB with excertion, Other (SOB at rest); No: Dry, Wheezing, Hemoptysis, Pleuritic Pain, Sputum, Wheezing Cardiovascular: No: Chest Pain, Palpitations, Orthopnea, Paroxysmal Noc. Dyspnea, Edema, Lt Headedness, Other Gastrointestinal: No: Nausea, Vomiting, Abdominal Pain, Diarrhea, Constipation, Melena, Hematochezia, Other Genitourinary: No Dysuria, No Frequency, No Incontinence, No Hematuria, No Retention, No Other Musculoskeletal: No: other, neck pain, shoulder pain, arm pain, back pain, hand pain, leg pain, foot pain Skin: No: Rash, Lesions, Jaundice, Bruising, Other Neurological: No: Weakness, Numbness, Incoordination, Change in speech, Confusion, Seizures, Other Allergies: Coded Allergies: RODRIGUE Inhibitors (Verified Allergy, Unknown, 05/17/20) Erythromycin (Verified Allergy, Unknown, 05/17/20) Paroxetine (Verified Allergy, Unknown, 05/17/20) Penicillins (Verified Allergy, Unknown, 05/17/20) Sumatriptan (Verified Allergy, Unknown, 05/17/20) Exam Vital Signs Vital Signs Date Time Temp Pulse Resp B/P (MAP) Pulse Ox O2 Delivery O2 Flow Rate FiO2 02/18/25 13:10 Nasal Cannula* 3 32 02/18/25 13:08 82 12 145/65 (91) 100 02/18/25 11:04 99.4 99.4 General Appearance: Alert, Oriented X3, Cooperative, No acute distress HEENT: Atraumatic, PERRLA, EOMI, Mucous membr. moist/pink Respiratory: Normal air movement, Other (Diminished lung sounds) Cardiovascular: Regular rate, Normal S1, Normal S2, No murmurs Abdominal: Normal bowel sounds, Soft, No tenderness, No hepatospenomegaly, No masses Extremities: No clubbing, No cyanosis, No edema, Normal pulses, No tenderness/swelling Skin: No rashes, No breakdown, No significant lesion Neuro: Normal speech, Normal tone, Sensation intact, Cranial nerves 3-12 NL, Reflexes 2+, Other (Generalized weakness) Psych/Mental Status: Mental status NL, Mood NL Labs/Xrays Labs Test 02/18/25 12:55 02/18/25 12:00 02/18/25 11:43 Range/Units Troponin I High Sensitivity 8 </=34 ng/L Urine Color Light-yellow Yellow Urine Clarity Clear Clear Urine pH 6.0 5.0-9.0 Urine Specific [place] 1.014 1.001-1.035 Urine Protein Negative Negative Urine Ketones Negative Negative Urine Blood Negative Negative /uL Urine Nitrite Negative Negative Urine Bilirubin Negative Negative Urine Urobilinogen Normal Negative mg/dL Urine Leukocyte Esterase Negative Negative /uL Urine RBC 1 0 - 4 /hpf Urine Microscopic WBC 0-5 /HPF Urine Squamous Epithelial Cells Few <5 /hpf Urine Bacteria Few H None Seen /hpf Urine Glucose Normal Normal mg/dL Influenza Type A Antigen Negative Negative Influenza Type B Antigen Negative Negative SARS-CoV-2 Antigen (Rapid) Negative NEGATIVE White Blood Count 5.2 4.4-10.8 10^3/uL Red Blood Count 4.10 4.0-5.20 10^6/uL Hemoglobin 11.8 L 12.2-16.2 g/dL Hematocrit 36.6 36.0-46.0 % Mean Corpuscular Volume 89.3 80.0-100.0 fL Mean Corpuscular Hemoglobin 28.8 28.0-32.0 pg Mean Corpuscular Hemoglobin Concent 32.3 32.0-36.0 g/dL Red Cell Distribution Width 15.2 H 11.8-14.3 % Platelet Count 189 140-450 10^3/uL Mean Platelet Volume 8.7 6.9-10.8 fL Neutrophils (%) (Auto) 65.1 37.0-80.0 % Lymphocytes (%) (Auto) 24.7 10.0-50.0 % Monocytes (%) (Auto) 8.1 0.0-12.0 % Eosinophils (%) (Auto) 1.6 0.0-7.0 % Basophils (%) (Auto) 0.5 0.0-2.0 % Neutrophils # (Auto) 3.4 1.6-8.6 10 ^3/uL Lymphocytes # (Auto) 1.3 0.4-5.4 10 ^3/uL Monocytes # (Auto) 0.4 0-1.3 10 ^3/uL Eosinophils # (Auto) 0.1 0-0.8 10 ^3/uL Basophils # (Auto) 0 0-0.2 10 ^3/uL Nucleated Red Blood Cells 0.1 % Sodium Level 141 136-145 mmol/L Potassium Level 4.0 3.5-5.1 mmol/L Chloride Level 102 98-107 mmol/L Carbon Dioxide Level 30 20-31 mmol/L Anion Gap 9 5-15 Blood Urea Nitrogen 15 9-23 mg/dL Creatinine 0.60 0.550-1.02 mg/dL Glomerular Filtration Rate Calc 97 >90 mL/min BUN/Creatinine Ratio 25.0 H 10.0-20.0 Serum Glucose 129 H 74-106 mg/dL Lactic Acid Level 1.7 0.4-2.0 mmol/L Calcium Level 9.9 8.7-10.4 mg/dL B-Type Natriuretic Peptide 36.76 0-100 pg/mL PATIENT: RADHA HOUSTONCT: [id number] UNIT: [id number] : 1955 LOC: ER ROOM / BED: / AGE / SEX: 70 / F ADM STATUS: REG ER SERVICE [id number] ORDERING PHYSICIAN: NOELLE LAUGHLIN MD PROCEDURE(s): CXRP - CHEST PORTABLE REASON: sob cough ORDER NUMBER(s): [id number], ACCESSION NUMBER(s): [id number] EXAM: XY CHEST PORTABLE Indication: sob cough Technique: Single frontal view of the chest was obtained Comparison: CHEST PORTABLE on DOS: 09/17/22, CXRP on DOS: 09/17/22, CHEST PORTABLE on DOS: 02/11/22, CXRP on DOS: 02/11/22 FINDINGS: Lines and Tubes: None Lungs: Mild pulmonary vascular congestion. Pleura: No effusion. No pneumothorax. Cardiomediastinal contours: Cardiomegaly. Bones: No acute osseous abnormality. IMPRESSION: Cardiomegaly with mild pulmonary vascular congestion. Assessment/Plan Assessment/Plan Acute and chronic respiratory failure COPD with acute exacerbation Heart failure, unspecified Generalized weakness Plan 1. Admit to telemetry unit 2. Breathing treatment 3. Pain control management 4. Management of fluids and electrolytes 5. Consultation for hospitalist 6. Diagnostic tests chest x-ray 7. DVT prophylaxis on SCDs 8. Repeat labs CBC, CMP in a.m. 9. Continue with current medical management 10. Treatment plan discussed with patient and RN. Patient verbalized understanding. Plan discussed with: Patient, Other (RN) My Orders Orders - ANGELA CARBAJAL DNP Procedure Category Date Status Time Levalbuterol Hcl PHA 02/18/25 Verified (Xopenex Medneb) 18:00 Methylprednisolone PHA 02/18/25 Verified Sod Succ (Solu Medrol 22:00 Famotidine Injection PHA 02/18/25 Verified (Pepcid Injection) 22:00 Furosemide Injection PHA 02/19/25 Verified (Lasix Injection) 10:00 Carvedilol Tablet PHA 02/18/25 Verified (Coreg Tablet) 22:00 Hydralazine Injection PHA 02/18/25 Verified (Apresoline Inject 16:00 Phenytoin Capsule PHA 02/18/25 Verified (Dilantin Capsule) 22:00 Phenytoin (Dilantin) LAB 02/18/25 Verified 15:51 Consistent DIET 02/18/25 Verified Carb(Ccho)Diabetes Dinner Glucose Blood PHA 02/18/25 Verified (Accu-Chek Comfort 17:00 Mild Sliding Scale PHA 02/18/25 Verified 17:00 Dextrose 50% Syringe PHA 02/18/25 Verified 16:00 Admit ADMIT 02/18/25 Verified 15:51 Allergies [facility] 02/18/25 Verified 15:51 Code Status CODE 02/18/25 Verified 15:51 Sodium Chloride Lock PHA 02/18/25 Verified (Saline Lock Ns) 22:00 Oxygen Per Hour RT 02/18/25 Verified 15:51 Hydrocodone-Acet PHA 02/18/25 Verified 5/325mg Tab ([place] 16:00 Ondansetron Hcl PHA 02/18/25 Verified (Zofran) 16:00 Docusate Sodium PHA 02/18/25 Verified Capsule (Colace 16:00 Fall Risk Precautions [facility] 02/18/[address] 15:51 Complete Blood Count LAB 02/19/25 Verified 04:00 Comprehensive LAB 02/19/25 Verified Metabolic Panel 04:00 Condition: Serious [facility] 02/18/25 Verified 15:51 Acetaminophen Tablet PHA 02/18/25 Verified (Tylenol Tablet) 16:00 Bedrest With Bathroom [facility] 02/18/25 Verified Privileg 15:51 Sequential [facility] 02/18/25 Verified Compression Device Nitroglycerin PHA 02/18/25 Verified Sublingual (Ntrostat 16:00 Morphine Sulfate PHA 02/18/25 Verified Injection 16:00 Notify Of Changes [facility] 02/18/25 Verified From Base 15:51 Lease Administration Supervisor For [facility] 02/18/25 Verified 24 Hours 15:51 Emergency Dysrhythmia [facility] 02/18/25 Verified Protocol 15:51 Rhythm Strips Once [facility] 02/18/25 Verified Every Shift 15:51 Oxygen By Nasal RT 02/18/25 Verified Cannula 15:51 Problem List: (1) Acute and chronic respiratory failure (2) COPD with acute exacerbation (3) Heart failure, unspecified (4) Generalized weakness Date of Service: February 18, 2025 Billing Provider: ANGELA CARBAJAL DNP Common Visit Codes: [id number] INP/OBS CARE (HIGH) ANGELA CARBAJAL DNP February 18, 2025 16:03
[2025-02-18 16:20] VITALS: BP 152/81; PULSE 76; RESP 20; TEMP 99.4; O2SAT 97
[2025-02-18] MEDS: InsuLIN REG 1unit/0.01ml Soln (100units/ml) SC SCH (16:49)
[2025-02-18] MEDS: ACCU-CHEK COMFORT CURVE STRIP VI SCH (16:56)
[2025-02-18] MEDS: HYDROcodone-ACET 5/325MG TAB PO PRN (16:56)
[2025-02-18] MEDS: LEVALBUTEROL HCL 1.25 MG/3 ML NEB NEB SCH (18:00)
[2025-02-18 20:00] VITALS: PULSE 74; PULSE 84; RESP 20; O2SAT 94
[2025-02-18] MEDS: NITROGLYCERIN 0.4 MG SL TAB SL PRN (20:09)
[2025-02-18] MEDS: MORPHINE SULFATE INJ 2 MG/ml SYRG IV PRN (21:20)
[2025-02-18] MEDS: FAMOTIDINE (10MG/ML) 2ML VL IV SCH (22:59)
[2025-02-18] MEDS: PHENYTOIN SODIUM 100 MG CAP PO SCH (22:59)
[2025-02-18] MEDS: CARVEDILOL 3.125 MG TAB PO SCH (22:59)
[2025-02-18] MEDS: SODIUM CHLOR 0.9% PF (SALINE LOCK) 10ML VIAL/SYR IV SCH (23:00)
[2025-02-18] MEDS: methylPREDNISolone SOD SUCC 40 MG/ML VL IV SCH (23:00)
[2025-02-18 23:24] VITALS: BP 155/76; PULSE 87; RESP 22; TEMP 98.1; O2SAT 96
[2025-02-19] VITALS (16 sets, daily range): BP systolic 147–166; BP diastolic 71–92; PULSE 68–82; RESP 16–20; TEMP 98–98.4; O2SAT 95–100
[2025-02-19 06:00] LABS: Basophils # (auto) 0 10 ^3/uL (0-0.2); Basophils % (auto) 0.6 % (0.0-2.0); Eosinophils # (auto) 0 10 ^3/uL (0-0.8); Eosinophils % (auto) 0.1 % (0.0-7.0); Hematocrit 35.1 % (36.0-46.0); Hemoglobin 11.5 g/dL (12.2-16.2); Lymphocytes % (auto) 18.5 % (10.0-50.0); Mean Corpuscular Hemoglobin 29.5 pg (28.0-32.0); Mean Corpuscular Hgb Conc. 32.7 g/dL (32.0-36.0); Mean Corpuscular Volume 90.2 fL (80.0-100.0); Monocytes # (auto) 0.4 10 ^3/uL (0-1.3); Monocytes % (auto) 6.4 % (0.0-12.0); Neutrophils # (auto) 4.2 10 ^3/uL (1.6-8.6); Neutrophils % (auto) 74.4 % (37.0-80.0); Nucleated Red Blood Cells % 0.2 %; Platelet Count (auto) 197 10^3/uL (140-450); Red Blood Cells 3.89 10^6/uL (4.0-5.20); White Blood Cell 5.6 10^3/uL (4.4-10.8)
[2025-02-19 06:06] LABS: Alanine Aminotransferase 30 U/L (7-40); Anion Gap 9 (5-15); Aspartate Aminotransferase 38 U/L (13-40); Blood Urea Nitrogen 11 mg/dL (9-23); Carbon Dioxide 28 mmol/L (20-31); Chloride 103 mmol/L (98-107); Potassium 3.9 mmol/L (3.5-5.1); Sodium 140 mmol/L (136-145); Total Protein 7.4 g/dL (5.7-8.2)
[2025-02-19 06:07] LABS: Albumin 4.2 g/dL (3.2-4.8)
[2025-02-19 06:12] LABS: Alkaline Phosphatase 140 U/L (46-116); Bilirubin, Total 0.3 mg/dL (0.2-1.0); Glucose 137 mg/dL (74-106)
[2025-02-19] MEDS: FUROSEMIDE 40 MG/4 ML VIAL IV SCH (08:12)
[2025-02-19] MEDS: ONDANSETRON HCL 4 MG/2 ML VIAL IV PRN (08:12)
--- NOTE | 2025-02-19 13:47 | DVHPN2 ---
Reviewed: Care Plan, H&P, Labs, Medications, Previous Orders, Radiology Changes from previous H/P or p: No Changes Eyes: No Pain, No Vision change, No Conjunctivae inflammation, No Eyelid inflammation, No Other, No Redness ENT: No Ear pain, No Ear discharge, No Nose pain, No Nose discharge, No Nose congestion, No Mouth pain, No Mouth swelling, No Throat pain, No Throat swelling, No Other Cardiovascular: No Chest Pain, No Palpitations, No Orthopnea, No Paroxysmal Noc. Dyspnea, No Edema, No Lt Headedness, No Other Respiratory: Cough; No Dry; Shortness of breath, SOB with excertion; No Wheezing, No Hemoptysis, No Pleuritic Pain, No Sputum; Other (SOB at rest) Gastrointestinal: No Nausea, No Vomiting, No Abdominal Pain, No Diarrhea, No Constipation, No Melena, No Hematochezia, No Other Genitourinary: No Dysuria, No Frequency, No Incontinence, No Hematuria, No Retention, No Other Musculoskeletal: No other, No neck pain, No shoulder pain, No arm pain, No back pain, No hand pain, No leg pain, No foot pain Skin: No Rash, No Lesions, No Jaundice, No Bruising, No Other Objective Vitals Vital Signs Date Time Temp Pulse Resp B/P (MAP) Pulse Ox O2 Delivery O2 Flow Rate FiO2 02/19/25 11:43 75 16 100 02/19/25 11:36 Nasal Cannula* 3 32 02/19/25 09:00 98.3 150/81 (104) 98.3 Intake/Output Intake and Output 02/19/25 07:00 Intake Total 300 ml Output Total 500 ml Balance -200 ml Intake Oral 300 ml Output Urine Total 500 ml Medications Current Medications Medications Dose Ordered Sig/Cesar Route Start Time Stop Time Status Last Admin Dose Admin Levalbuterol HCl 0.625 mg Q6HR NEB 02/18/25 18:00 02/19/25 11:36 0.625 MG Methylprednisolone Sodium Succinate 60 mg Q8HR IV 02/18/25 22:00 02/19/25 13:14 60 MG Famotidine 20 mg Q12HR IV 02/18/25 22:00 02/19/25 08:12 20 MG Furosemide 40 mg DAILY IV 02/19/25 10:00 02/19/25 08:12 40 MG Carvedilol 3.125 mg Q12HR PO 02/18/25 22:00 02/19/25 08:13 3.125 MG Hydralazine HCl 10 mg Q6HP PRN IV 02/18/25 16:00 Phenytoin Sodium 200 mg BID PO 02/18/25 22:00 02/19/25 08:14 200 MG Diagnostic Test (Pha) 1 strip ACHS 02/18/25 17:00 02/19/25 11:30 1 STRIP Insulin Human Regular ACHS SC 02/18/25 17:00 02/19/25 06:28 2 UNITS Dextrose 50 ml UD PRN IV 02/18/25 16:00 Sodium Chloride 10 ml Q8HR IV 02/18/25 22:00 02/19/25 06:28 10 ML Acetaminophen/ Hydrocodone Bitart 1 tab Q4HP PRN PO 02/18/25 16:00 02/19/25 13:14 1 TAB Ondansetron HCl 4 mg Q4HP PRN IV 02/18/25 16:00 02/19/25 08:12 4 MG Docusate Sodium 100 mg BIDPRN PRN PO 02/18/25 16:00 Acetaminophen 650 mg Q6HP PRN PO 02/18/25 16:00 Nitroglycerin 0.4 mg Q5MINP PRN SL 02/18/25 16:00 02/18/25 20:09 0.4 MG Morphine Sulfate 2 mg Q30M PRN IV 02/18/25 16:00 02/18/25 21:20 2 MG Laboratory Results Laboratory Tests 02/19/25 05:31 Chemistry Test 02/19/25 05:31 Albumin 4.2 g/dL (3.2-4.8) Calcium Level 10.0 mg/dL (8.7-10.4) Total Protein 7.4 g/dL (5.7-8.2) LFT Test 02/19/25 05:31 Alanine Aminotransferase (ALT) 30 U/L (7-40) Alkaline Phosphatase 140 U/L (46-116) H Aspartate Amino Transferase (AST) 38 U/L (13-40) Total Bilirubin 0.3 mg/dL (0.2-1.0) Urinalysis Test 02/18/25 12:00 Urine Color Light-yellow (Yellow) Urine Clarity Clear (Clear) Urine pH 6.0 (5.0-9.0) Urine Specific [place] 1.014 (1.001-1.035) Urine Protein Negative (Negative) Urine Ketones Negative (Negative) Urine Blood Negative /uL (Negative) Urine Nitrite Negative (Negative) Urine Bilirubin Negative (Negative) Urine Urobilinogen Normal mg/dL (Negative) Urine Leukocyte Esterase Negative /uL (Negative) Urine RBC 1 /hpf (0 - 4) Urine Microscopic WBC /HPF (0-5) Urine Squamous Epithelial Cells Few /hpf (<5) Urine Bacteria Few /hpf (None Seen) H Urine Glucose Normal mg/dL (Normal) Microbiology Microbiology Date/Time Source Procedure Growth Status 02/18/25 11:43 Blood Blood Culture - Preliminary NO GROWTH AFTER 24 HOURS OF INCUBATION. Resulted Labs and/or images reviewed: Labs reviewed by me, Image(s) reviewed by me Assessment/Plan Assessment/Plan Acute and chronic respiratory failure oxygen by nasal cannula Acute COPD with acute exacerbation Chronic congestive heart failure Generalized weakness History of breast cancer in remission Asthma exacerbation History of CVA Diabetes Hypertension History of [place] Seizures Brooke test negative COVID test negative Blood cultures negative Time spent 65 minutes Advanced care planning time 20 minutes Patient is full code Plan discussed with: Patient Date of Service: February 19, 2025 Billing Provider: ROMEL HDZ MD Common Visit Codes: [id number] INP/OBS CARE(HIGH) ROMEL HDZ MD February 19, 2025 13:47
[2025-02-19] MEDS ORDERED: IPRATROPIUM BROM 0.5 MG/2.5ML INH SOL NEB PRN (17:00)
[2025-02-19] MEDS ORDERED: ALBUTEROL SULF 2.5 MG/0.5ML(0.5%) NEB SOLN NEB PRN (17:00)
[2025-02-19] MEDS: MORPHINE SULF 15mg ER tab PO ONE (17:06)
[2025-02-19] MEDS: MORPHINE SULF 15mg ER tab PO SCH (21:20)
[2025-02-19] MEDS: PREGABALIN CAPSULE 75 MG CAP PO SCH (21:20)
[2025-02-19] MEDS: MELATONIN 5 MG TAB PO ONE (21:21)
[2025-02-19] MEDS ORDERED: MELATONIN 5 MG TAB PO ONE (22:00)
[2025-02-20] VITALS (15 sets, daily range): BP systolic 120–167; BP diastolic 54–77; PULSE 56–84; RESP 15–21; TEMP 97.5–98.4; O2SAT 95–100
--- NOTE | 2025-02-20 11:56 | DVHPN2 ---
Reviewed: Care Plan, H&P, Labs, Medications, Previous Orders, Radiology Changes from previous H/P or p: No Changes Eyes: No Pain, No Vision change, No Conjunctivae inflammation, No Eyelid inflammation, No Other, No Redness ENT: No Ear pain, No Ear discharge, No Nose pain, No Nose discharge, No Nose congestion, No Mouth pain, No Mouth swelling, No Throat pain, No Throat swelling, No Other Cardiovascular: No Chest Pain, No Palpitations, No Orthopnea, No Paroxysmal Noc. Dyspnea, No Edema, No Lt Headedness, No Other Respiratory: Cough; No Dry; Shortness of breath, SOB with excertion; No Wheezing, No Hemoptysis, No Pleuritic Pain, No Sputum; Other (SOB at rest) Gastrointestinal: No Nausea, No Vomiting, No Abdominal Pain, No Diarrhea, No Constipation, No Melena, No Hematochezia, No Other Genitourinary: No Dysuria, No Frequency, No Incontinence, No Hematuria, No Retention, No Other Musculoskeletal: No other, No neck pain, No shoulder pain, No arm pain, No back pain, No hand pain, No leg pain, No foot pain Skin: No Rash, No Lesions, No Jaundice, No Bruising, No Other Objective Vitals Vital Signs Date Time Temp Pulse Resp B/P (MAP) Pulse Ox O2 Delivery O2 Flow Rate FiO2 02/20/25 11:39 71 16 97 02/20/25 11:39 Nasal Cannula* 3 32 02/20/25 10:01 135/77 02/20/25 09:00 98.0 98.0 Intake/Output Intake and Output 02/20/25 07:00 Intake Total 475 ml Output Total 1200 ml Balance -725 ml Intake Oral 475 ml Output Urine Total 1200 ml Medications Current Medications Medications Dose Ordered Sig/Cesar Route Start Time Stop Time Status Last Admin Dose Admin Levalbuterol HCl 0.625 mg Q6HR NEB 02/18/25 18:00 02/20/25 11:39 0.625 MG Methylprednisolone Sodium Succinate 60 mg Q8HR IV 02/18/25 22:00 02/20/25 06:09 60 MG Famotidine 20 mg Q12HR IV 02/18/25 22:00 02/20/25 10:00 20 MG Furosemide 40 mg DAILY IV 02/19/25 10:00 02/20/25 10:00 40 MG Carvedilol 3.125 mg Q12HR PO 02/18/25 22:00 02/20/25 10:01 3.125 MG Hydralazine HCl 10 mg Q6HP PRN IV 02/18/25 16:00 Phenytoin Sodium 200 mg BID PO 02/18/25 22:00 02/20/25 10:00 200 MG Diagnostic Test (Pha) 1 strip ACHS 02/18/25 17:00 02/20/25 06:13 1 STRIP Insulin Human Regular ACHS SC 02/18/25 17:00 02/19/25 21:28 2 UNITS Dextrose 50 ml UD PRN IV 02/18/25 16:00 Sodium Chloride 10 ml Q8HR IV 02/18/25 22:00 02/20/25 06:11 10 ML Acetaminophen/ Hydrocodone Bitart 1 tab Q4HP PRN PO 02/18/25 16:00 02/20/25 02:47 1 TAB Ondansetron HCl 4 mg Q4HP PRN IV 02/18/25 16:00 02/19/25 08:12 4 MG Docusate Sodium 100 mg BIDPRN PRN PO 02/18/25 16:00 Acetaminophen 650 mg Q6HP PRN PO 02/18/25 16:00 Nitroglycerin 0.4 mg Q5MINP PRN SL 02/18/25 16:00 02/18/25 20:09 0.4 MG Morphine Sulfate 2 mg Q30M PRN IV 02/18/25 16:00 02/18/25 21:20 2 MG Morphine Sulfate 15 mg Q12HR PO 02/19/25 22:00 02/20/25 10:02 15 MG Pregabalin 150 mg TID PO 02/19/25 22:00 02/20/25 06:09 150 MG Albuterol 2.5 mg Q6HPRN PRN NEB 02/19/25 17:00 UNV Ipratropium [place] 0.5 mg Q6HPRN PRN NEB 02/19/25 17:00 UNV Laboratory Results Laboratory Tests 02/19/25 05:31 Urinalysis Test 02/18/25 12:00 Urine Color Light-yellow (Yellow) Urine Clarity Clear (Clear) Urine pH 6.0 (5.0-9.0) Urine Specific [place] 1.014 (1.001-1.035) Urine Protein Negative (Negative) Urine Ketones Negative (Negative) Urine Blood Negative /uL (Negative) Urine Nitrite Negative (Negative) Urine Bilirubin Negative (Negative) Urine Urobilinogen Normal mg/dL (Negative) Urine Leukocyte Esterase Negative /uL (Negative) Urine RBC 1 /hpf (0 - 4) Urine Microscopic WBC /HPF (0-5) Urine Squamous Epithelial Cells Few /hpf (<5) Urine Bacteria Few /hpf (None Seen) H Urine Glucose Normal mg/dL (Normal) Microbiology Microbiology Date/Time Source Procedure Growth Status 02/18/25 11:43 Blood Blood Culture - Preliminary NO GROWTH AFTER 48 HOURS OF INCUBATION. Resulted Labs and/or images reviewed: Labs reviewed by me, Image(s) reviewed by me Assessment/Plan Assessment/Plan Acute on chronic respiratory failure oxygen by nasal cannula Acute COPD exacerbation, albuterol Atrovent Solu-Medrol no antibiotics needed Chronic congestive heart failure Generalized weakness History of breast cancer in remission on chemo by Anastazole Asthma exacerbation History of CVA Diabetes Hypertension History of [place] Seizures Brooke test negative COVID test negative Blood cultures negative Time spent 55 minutes Patient is full code Plan discussed with: Patient My Orders Orders - ROMEL HDZ MD Procedure Category Date Status Time Morphine Extended PHA 02/19/25 In Process Release Tab (Oramorph 22:00 Pregabalin Capsule PHA 02/19/25 In Process (Lyrica Capsule) 22:00 Date of Service: February 20, 2025 Billing Provider: ROMEL HDZ MD Common Visit Codes: [id number] INP/OBS CARE(HIGH) ROMEL HDZ MD February 20, 2025 11:56
[2025-02-20] MEDS ORDERED: ANAS1TAB7 PO (12:43)
[2025-02-21] VITALS (12 sets, daily range): BP systolic 133–155; BP diastolic 64–77; PULSE 58–78; RESP 16–19; TEMP 97.6–98.2; O2SAT 98–100
--- NOTE | 2025-02-21 08:54 | CONS ---
Pharmacy Clinical Information: From Heart Failure Potential Fallout Report on CQM Application, Selena Mancuso is a 70 year old female with PMH of [place], DM, CHF, COPD, CVA, HTN, and seizures. LFTs are WNL, lipid panel not available. According to the 2018 blood cholesterol guidelines, high-intensity statin should be initiated or continued in patients aged <75 years with clinical ASCVD. Consider initiation of statin therapy at the discretion of the traffic rate clerk. ARAMIS JAMESON PHARMACIST February 21, 2025 08:54
[2025-02-21] MEDS: ANASTROZOLE 1MG PO SCH (10:00)
[2025-02-21] MEDS ORDERED: LEVO500T91 PO (12:02)
[2025-02-21] MEDS ORDERED: PRED20TA2 PO (12:02)
--- NOTE | 2025-02-21 12:02 | DVHPN2 ---
Reviewed: Care Plan, H&P, Labs, Medications, Previous Orders, Radiology Changes from previous H/P or p: No Changes Eyes: No Pain, No Vision change, No Conjunctivae inflammation, No Eyelid inflammation, No Other, No Redness ENT: No Ear pain, No Ear discharge, No Nose pain, No Nose discharge, No Nose congestion, No Mouth pain, No Mouth swelling, No Throat pain, No Throat swelling, No Other Cardiovascular: No Chest Pain, No Palpitations, No Orthopnea, No Paroxysmal Noc. Dyspnea, No Edema, No Lt Headedness, No Other Respiratory: Cough; No Dry; Shortness of breath, SOB with excertion; No Wheezing, No Hemoptysis, No Pleuritic Pain, No Sputum; Other (SOB at rest) Gastrointestinal: No Nausea, No Vomiting, No Abdominal Pain, No Diarrhea, No Constipation, No Melena, No Hematochezia, No Other Genitourinary: No Dysuria, No Frequency, No Incontinence, No Hematuria, No Retention, No Other Musculoskeletal: No other, No neck pain, No shoulder pain, No arm pain, No back pain, No hand pain, No leg pain, No foot pain Skin: No Rash, No Lesions, No Jaundice, No Bruising, No Other Objective Vitals Vital Signs Date Time Temp Pulse Resp B/P (MAP) Pulse Ox O2 Delivery O2 Flow Rate FiO2 02/21/25 10:27 148/70 02/21/25 10:26 60 02/21/25 09:00 97.9 16 100 97.9 02/21/25 08:00 Nasal Cannula* 3 32 Intake/Output Intake and Output 02/21/25 07:00 Intake Total 1400 ml Output Total 2300 ml Balance -900 ml Intake Oral 1400 ml Output Urine Total 2300 ml Medications Current Medications Medications Dose Ordered Sig/Cesar Route Start Time Stop Time Status Last Admin Dose Admin Levalbuterol HCl 0.625 mg Q6HR NEB 02/18/25 18:00 02/21/25 06:38 0.625 MG Methylprednisolone Sodium Succinate 60 mg Q8HR IV 02/18/25 22:00 02/21/25 05:54 60 MG Famotidine 20 mg Q12HR IV 02/18/25 22:00 02/21/25 10:27 20 MG Furosemide 40 mg DAILY IV 02/19/25 10:00 02/21/25 10:27 40 MG Carvedilol 3.125 mg Q12HR PO 02/18/25 22:00 02/21/25 10:26 3.125 MG Hydralazine HCl 10 mg Q6HP PRN IV 02/18/25 16:00 Phenytoin Sodium 200 mg BID PO 02/18/25 22:00 02/21/25 10:22 200 MG Diagnostic Test (Pha) 1 strip ACHS 02/18/25 17:00 02/21/25 11:52 1 STRIP Insulin Human Regular ACHS SC 02/18/25 17:00 02/21/25 06:00 2 UNITS Dextrose 50 ml UD PRN IV 02/18/25 16:00 Sodium Chloride 10 ml Q8HR IV 02/18/25 22:00 02/21/25 05:54 10 ML Acetaminophen/ Hydrocodone Bitart 1 tab Q4HP PRN PO 02/18/25 16:00 02/21/25 11:35 1 TAB Ondansetron HCl 4 mg Q4HP PRN IV 02/18/25 16:00 02/19/25 08:12 4 MG Docusate Sodium 100 mg BIDPRN PRN PO 02/18/25 16:00 Acetaminophen 650 mg Q6HP PRN PO 02/18/25 16:00 Nitroglycerin 0.4 mg Q5MINP PRN SL 02/18/25 16:00 02/18/25 20:09 0.4 MG Morphine Sulfate 2 mg Q30M PRN IV 02/18/25 16:00 02/18/25 21:20 2 MG Morphine Sulfate 15 mg Q12HR PO 02/19/25 22:00 02/21/25 10:23 15 MG Pregabalin 150 mg TID PO 02/19/25 22:00 02/21/25 05:53 150 MG Albuterol 2.5 mg Q6HPRN PRN NEB 02/19/25 17:00 UNV Ipratropium [place] 0.5 mg Q6HPRN PRN NEB 02/19/25 17:00 UNV Patient Own Medication 1 DAILY PO 02/21/25 10:00 Laboratory Results Laboratory Tests 02/19/25 05:31 Urinalysis Test 02/18/25 12:00 Urine Color Light-yellow (Yellow) Urine Clarity Clear (Clear) Urine pH 6.0 (5.0-9.0) Urine Specific [place] 1.014 (1.001-1.035) Urine Protein Negative (Negative) Urine Ketones Negative (Negative) Urine Blood Negative /uL (Negative) Urine Nitrite Negative (Negative) Urine Bilirubin Negative (Negative) Urine Urobilinogen Normal mg/dL (Negative) Urine Leukocyte Esterase Negative /uL (Negative) Urine RBC 1 /hpf (0 - 4) Urine Microscopic WBC /HPF (0-5) Urine Squamous Epithelial Cells Few /hpf (<5) Urine Bacteria Few /hpf (None Seen) H Urine Glucose Normal mg/dL (Normal) Microbiology Microbiology Date/Time Source Procedure Growth Status 02/18/25 11:43 Blood Blood Culture - Preliminary NO GROWTH AFTER 72 HOURS OF INCUBATION. Resulted Labs and/or images reviewed: Labs reviewed by me, Image(s) reviewed by me Assessment/Plan Assessment/Plan Acute on chronic respiratory failure oxygen by nasal cannula Acute COPD exacerbation, albuterol Atrovent Solu-Medrol no antibiotics needed Chronic congestive heart failure Generalized weakness History of breast cancer in remission on chemo by Anastazole Asthma exacerbation History of CVA Diabetes Hypertension History of [place] Seizures Brooke test negative COVID test negative Blood cultures negative Patient Feels better and wants to go home Time spent 55 minutes Patient is full code Plan discussed with: Patient My Orders Orders - ROMEL HDZ MD Procedure Category Date Status Time Patients Own PHA 02/21/25 In Process Medication 10:00 Date of Service: February 21, 2025 Billing Provider: ROMEL HDZ MD Common Visit Codes: [id number] INP/OBS CARE(HIGH) ROMEL HDZ MD February 21, 2025 12:02
--- NOTE | 2025-02-21 12:06 | DVHDS2 ---
Discharge Summary Date of Admission February 18, 2025 at 15:51 Date of Discharge: February 21, 2025 Admitting Diagnosis Shortness of breath Wounds: None Labs/Diagnostic Data: Laboratory Results Test 02/21/25 11:43 02/19/25 05:31 02/18/25 12:55 02/18/25 12:00 POC Glucose 147 mg/dl (70-106) White Blood Count 5.6 10^3/uL (4.4-10.8) Red Blood Count 3.89 10^6/uL (4.0-5.20) Hemoglobin 11.5 g/dL (12.2-16.2) Hematocrit 35.1 % (36.0-46.0) Mean Corpuscular Volume 90.2 fL (80.0-100.0) Mean Corpuscular Hemoglobin 29.5 pg (28.0-32.0) Mean Corpuscular Hemoglobin Concent 32.7 g/dL (32.0-36.0) Red Cell Distribution Width 15.0 % (11.8-14.3) Platelet Count 197 10^3/uL (140-450) Mean Platelet Volume 8.7 fL (6.9-10.8) Neutrophils (%) (Auto) 74.4 % (37.0-80.0) Lymphocytes (%) (Auto) 18.5 % (10.0-50.0) Monocytes (%) (Auto) 6.4 % (0.0-12.0) Eosinophils (%) (Auto) 0.1 % (0.0-7.0) Basophils (%) (Auto) 0.6 % (0.0-2.0) Neutrophils # (Auto) 4.2 10 ^3/uL (1.6-8.6) Lymphocytes # (Auto) 1.0 10 ^3/uL (0.4-5.4) Monocytes # (Auto) 0.4 10 ^3/uL (0-1.3) Eosinophils # (Auto) 0 10 ^3/uL (0-0.8) Basophils # (Auto) 0 10 ^3/uL (0-0.2) Nucleated Red Blood Cells 0.2 % Sodium Level 140 mmol/L (136-145) Potassium Level 3.9 mmol/L (3.5-5.1) Chloride Level 103 mmol/L (98-107) Carbon Dioxide Level 28 mmol/L (20-31) Anion Gap 9 (5-15) Blood Urea Nitrogen 11 mg/dL (9-23) Creatinine 0.61 mg/dL (0.550-1.02) Glomerular Filtration Rate Calc 96 mL/min (>90) BUN/Creatinine Ratio 18.0 (10.0-20.0) Serum Glucose 137 mg/dL (74-106) Calcium Level 10.0 mg/dL (8.7-10.4) Total Bilirubin 0.3 mg/dL (0.2-1.0) Aspartate Amino Transferase (AST) 38 U/L (13-40) Alanine Aminotransferase (ALT) 30 U/L (7-40) Alkaline Phosphatase 140 U/L (46-116) Total Protein 7.4 g/dL (5.7-8.2) Albumin 4.2 g/dL (3.2-4.8) Troponin I High Sensitivity 8 ng/L (</=34) Urine Color Light-yellow (Yellow) Urine Clarity Clear (Clear) Urine pH 6.0 (5.0-9.0) Urine Specific [place] 1.014 (1.001-1.035) Urine Protein Negative (Negative) Urine Ketones Negative (Negative) Urine Blood Negative /uL (Negative) Urine Nitrite Negative (Negative) Urine Bilirubin Negative (Negative) Urine Urobilinogen Normal mg/dL (Negative) Urine Leukocyte Esterase Negative /uL (Negative) Urine RBC 1 /hpf (0 - 4) Urine Microscopic WBC /HPF (0-5) Urine Squamous Epithelial Cells Few /hpf (<5) Urine Bacteria Few /hpf (None Seen) Urine Glucose Normal mg/dL (Normal) Influenza Type A Antigen Negative (Negative) Influenza Type B Antigen Negative (Negative) SARS-CoV-2 Antigen (Rapid) Negative (NEGATIVE) Test 02/18/25 11:43 Lactic Acid Level 1.7 mmol/L (0.4-2.0) B-Type Natriuretic Peptide 36.76 pg/mL (0-100) Phenytoin (Dilantin) Level 13.2 ug/mL (10-20) Other Laboratory Tests 02/19/25 05:31 Brief Hx & Hospital Course: Year-old female with a history of COPD CHF history of breast cancer in remission on chemo by Dr. Casper asthma CVA diabetes hypertension history of [place] seizures came in for increasing shortness of breaths diagnosed with a acute exacerbation of COPD treated with albuterol Atrovent Solu-Medrol and oxygen Brooke test negative COVID test negative blood cultures negative chest x-ray is clear. Patient on 2 L of oxygen which is her usual requirement at home. Discharged home on Levaquin and prednisone she will follow up with the primary Dr Dr. rCaft. Consults/Reason for consult None Operations or Procedures None Condition at Discharge: Fair Final Diagnosis/Problems List Acute on chronic respiratory failure oxygen by nasal cannula Acute COPD exacerbation, albuterol Atrovent Solu-Medrol no antibiotics needed Chronic congestive heart failure Generalized weakness History of breast cancer in remission on chemo by Dr.Popli Peterson Asthma exacerbation History of CVA Diabetes Hypertension History of [place] Seizures Brooke test negative COVID test negative Blood cultures negative Discharge Disposition: Home Discharge Instruct/Medications Diet: Regular Activity: Light activity Follow Up/Referral: Resume all your previous home medications Follow up with the primary Dr cratf Medications: Levaquin Prednisone Transmitted to pharmacy 39 (Time taken for discharge summary 39 minutes) Discharge Statement: "Patient was advised to return to the ER or call 911 if any headaches, dizziness, shortness of breath, chest pain, abdominal pain, bleeding, fevers, or worsening of medical condition. Patient was counseled about treatment plan, medications, possible side effects, patient�verbalized understanding. All questions were answered to the best of my ability. This discharge took greater then 30 minutes in planning, reviewing documentation, counseling the patient, and discussing with other team members." ASSESSMENT ASSESSMENT Hospital Course Improved Assessment Acute on chronic respiratory failure oxygen by nasal cannula Acute COPD exacerbation, albuterol Atrovent Solu-Medrol no antibiotics needed Chronic congestive heart failure Generalized weakness History of breast cancer in remission on chemo by Dr.Popli Peterson Asthma exacerbation History of CVA Diabetes Hypertension History of [place] Seizures Brooke test negative COVID test negative Blood cultures negative Date of Service: February 21, 2025 Billing Provider: ROMEL HDZ MD Common Visit Codes: [id number] DISCH DAY >30min ROMEL HDZ MD February 21, 2025 12:06
== END 2025-02-21 15:00 | disposition home or self-care (01) | DRG 189 ==
LOC: ER 10:55 → EDUNIT# 10:55 → EDBD 10:55 → OVERFLOW 15:51 → TELE-WESTW 23:06
PROVIDERS: ADMIT Family Medicine; ATTEND Family Medicine
DX: J96.20 Acute and chronic respiratory failure, unspecified whether with hypoxia or hypercapnia (principal); J45.901 Unspecified asthma with (acute) exacerbation; J44.1 Chronic obstructive pulmonary disease with (acute) exacerbation; I50.9 Heart failure, unspecified; I11.0 Hypertensive heart disease with heart failure; Z20.822 Contact with and (suspected) exposure to COVID-19; E11.9 Type 2 diabetes mellitus without complications; R56.9 Unspecified convulsions; I25.2 Old myocardial infarction; Z86.73 Personal history of transient ischemic attack (TIA), and cerebral infarction without residual deficits; Z87.891 Personal history of nicotine dependence; Z85.3 Personal history of malignant neoplasm of breast; Z83.3 Family history of diabetes mellitus; Z88.0 Allergy status to penicillin; Z88.1 Allergy status to other antibiotic agents; Z88.8 Allergy status to other drugs, medicaments and biological substances
CPT/HCPCS: 36415; 71045; 80048; 80053; 80185; 81001; 82962; 83605; 83880; 84484; 85025; 87040; 87426; 87804; 93005; 94640; 96365; 96375; 99291; G0378; J1815; J1956; J2405; J3490

== ENCOUNTER 2025-07-05 14:04 | Outpatient (CLI) | payer OTHER, MEDICAID, BC ==
[~2025-07-05 14:04] MED LIST changes: +ANAS1TAB7 PO; +LEVO500T91 PO
[2025-07-05 14:38] LABS: Urine Budding Yeast MODERATE /hpf (None Seen); Urine Protein, UAD Negative (Negative)
== END 2025-07-08 17:00 | disposition home or self-care (01) ==
LOC: LAB 14:04
PROVIDERS: ATTEND Urology
DX: N39.0 Urinary tract infection, site not specified (principal)
CPT/HCPCS: 81001; 87086